=== PATIENT | female | born 1935 | race Caucasian/White ===

== ENCOUNTER 2019-01-24 14:38 | Inpatient (IN) ==
[2019-01-24] MEDS ORDERED: DUONEB (A & A) INH ONE (15:08)
[2019-01-24] MEDS ORDERED: VANCOMYCIN 1 GM/NS 1 GM/250 ML IVPB IV ONE (15:09)
[2019-01-24] MEDS ORDERED: SOLU-CORTEF IV ONE (15:09)
[2019-01-24] MEDS ORDERED: SOLU-MEDROL IV ONE (15:09)
[2019-01-24] MEDS ORDERED: ZOSYN 4.5 GM in NS 100 ML IV ONE (15:10)
--- NOTE | 2019-01-24 15:17 | Diag Imaging Result Doc PS360 ---
EXAM: CHEST-1 VIEW HISTORY: POSSIBLE SEPSIS TECHNIQUE: Chest single view COMPARISON: 01/08/2019 FINDINGS: The lungs are well expanded. The heart is not enlarged. The vessels are not distended. There are no infiltrates. There is scarring in the medial right base. No effusion identified. Long-standing right shoulder arthritis. IMPRESSION: No pneumonia. Electronically signed by Arvind Mcdaniels 01/24/2019 3:15 PM
[2019-01-24 15:59] LABS: ALLEN TEST YES; BE 1.2 mmoll (-3.0-3.0); BLOOD TYPE ARTERIAL; HCO3-(ACT) 25.8 mmoll (20.0-26.0); METHB 1.2 % (0.0-1.5); O2(CT) 17.4 mL/dL (15.0-23.0); O2HB 93.7 % (95.0-99.0); PCO2(98.6) 36 mmHg (35-45); PO2(98.6) 81 mmHg (60-100); SAMPLE BLOOD; SAO2 98.5 % (95.0-100.0); THB 13.2 g/dL (11.5-17.4); pH(98.6) 7.45 (7.35-7.45)
[2019-01-24 16:01] LABS: MODALITY CANNULA
[2019-01-24 16:17] LABS: BASO# 0.04 X1000 (0.0-0.2); BASO% 0.3 % (0.0-0.8); EOS# 0.02 X1000 (0.0-0.7); EOS% 0.1 % (0.0-10.0); HEMATOCRIT 39.3 % (37.0-47.0); HEMOGLOBIN 13.7 g/dL (12.0-16.0); IMM GRAN# 0.14 X1000 (0.0-0.04); LYMPH% 9.6 % (20.5-51.1); MCH 30.4 PG (27-31); MCHC 34.9 g/dL (33-37); MCV 87.1 FL (81-99); MONO% 8.8 % (1.7-9.3); NEUT# 10.86 X1000 (1.4-6.5); NEUT% 80.2 % (42.2-75.2); PLT 362 X1000 (130-400); RBC 4.51 XMIL (4.2-5.4); RDW 14.3 % (11.5-14.5); WBC 13.56 X1000 (4.8-10.8)
[2019-01-24 16:26] LABS: INR 0.87; PROTIME 12.6 Seconds (11.0-16.0)
--- NOTE | 2019-01-24 16:37 | PROVIDER DOCUMENTATION ---
This chart was entered by Taniya Meglar Scribe, acting as scribe for Yasir Reyes MD. HPI-Respiratory General - General Chief Complaint: SEPSIS ALERT - D Stated Complaint: SOB Time Seen by Provider: 01/24/19 14:56 Source: patient Allergies/Adverse Reactions: Patient Allergies Allergy/AdvReac Type Severity Reaction Status Date / Time hydrocodone bitartrate * AdvReac NAUSEA/VOMI Verified 07/07/16 07:28 [From Lortab] TING Home Medications: Home Medication List Medication Instructions Recorded Confirmed Last Taken Type Pravastatin Sodium 40 mg PO QHS 01/10/14 10/22/17 07/06/16 17:00 History Ramipril [Altace] 2.5 mg PO DAILY #0 01/19/14 10/22/17 07/06/16 08:00 Rx Meloxicam [Mobic] 15 mg PO DAILY PRN #0 03/29/14 10/22/17 07/06/16 08:00 Rx Guaifenesin E.r. [Mucinex] 600 mg PO BID 10/11/15 10/23/17 07/06/16 17:00 History Multivitamin with Minerals 1 each PO DAILY 07/05/16 10/23/17 07/06/16 08:00 History [Multiple Vitamin] Acetylcysteine 3 ml INH TID@0900,1500,2100 10/22/17 10/22/17 Unknown History Azelastine 137 Mcg Nasal [place] 2 spray JARED BID 10/22/17 10/22/17 Unknown History [Astelin Nasal [place]] Fluticasone/Salmet 250/50 INH 1 puff INH RTBID 10/22/17 10/22/17 Unknown History [Advair 250/50 Diskus] Umeclidinium [place] Inhaler 1 puff INH DAILY 10/22/17 10/22/17 Unknown History [Incruse Ellipta] Cefepime HCl/Dextrose, Iso-Osm 2 gm IV Q8H #42 [id number] 10/25/17 Unknown Rx [Cefepime 2 gm Injection] - History of Present Illness-Resp Nature of Presenting Problem: Patient is a 83 year old female who presents with shortness of breath, cough, and weakness. States history of COPD. Reports she wears 2.5 L of oxygen at night. Denies fever. States she takes 5 mg of Prednisone daily. Denies being on an antibiotic recently. Patient's O2 sat was 89% on room air. Quality of Pain: reports: tightness Severity in ED: reports: mild Onset/Duration: reports: gradual Timing: reports: still present, getting worse Cough Quality/Degree: reports: moderate, productive cough, sputum Episode Frequency: frequent episodes Current Respiratory Medication Therapy: Initiated see nurses note Associated Symptoms: reports: cough, shortness of breath, other (weakness) Similar Symptoms Previously?: Yes Recently seen or treated by another doctor?: Yes Review of Systems - Adult - REVIEW OF SYSTEMS - ADULT Constitutional: reports: no symptoms reported. denies: chills, fever, fatique Eyes: reports: no symptoms reported Ears, Nose, Mouth & Throat: reports: no symptoms reported. denies: ear pain, sinus problem, throat pain Cardiovascular: reports: no symptoms reported Respiratory: reports: see HPI, cough, shortness of breath. denies: wheezing Gastrointestinal: reports: no symptoms reported Genitourinary: reports: no symptoms reported Musculoskeletal: reports: no symptoms reported Integumentary: reports: no symptoms reported Neurological: reports: no symptoms reported Psychiatric: reports: no symptoms reported Endocrine: reports: no symptoms reported Hematologic/Lymphatic: reports: no symptoms reported Allergic/Immunologic: reports: no symptoms reported All Other Systems: Reviewed and Negative Past History - Adult - PAST MEDICAL HISTORY-ADULT Review of Records: reports: Old Records Reviewed, Nursing Assessment Review, Medications Reviewed, Social history reviewed & non-contributory. Major Childhood Illnesses: reports: denies history Cardiovascular: reports: aortic disease (AAA), HTN, hyperlipidemia Respiratory: reports: asthma, COPD, cancer (BELTRAN, s/p lobectomy), pneumonia (hx of recurrent) Gastrointestinal: reports: denies history Obstetrical/Gynecological: reports: denies history Genitourinary: reports: denies history Musculoskeletal: reports: denies history Neurological: reports: denies history Endocrine/Immune: reports: denies history Other Conditions: reports: other (AAA) - PRIOR SURGERIES/PROCEDURES Surgical/Procedure History: reports: appendectomy, cholecystectomy, joint replacement (hip replacement), other (Left upper lung lobectomy ) - IMMUNIZATION STATUS Childhood Immunizations: See Nurse Assessment Flu Vaccine: See Nurse Assessment - FAMILY HISTORY Family History: diabetes - SOCIAL HISTORY Smoking: cigarettes (former) Substance Use: denies Living Situation: alone Physical Exam-General - PHYSICAL EXAM-ADULT Initial Vital Signs Reviewed: Yes - CONSTITUTIONAL General Appearance: alert, no apparent distress, thin. negative: lethargic, slow to respond - RESPIRATORY Respiratory: chest non-tender, rhonchi (inspiratory and expiratory), increased rate, other (dyspnea). negative: accessory muscle use, wheezing - CARDIOVASCULAR Cardiovascular: normal peripheral pulses, regular rate, rhythm. negative: tachycardia, systolic murmur - GASTROINTESTINAL (ABDOMEN) Abdominal Exam: normal bowel sounds, non tender, soft. negative: guarding, rebound - MUSCULOSKELETAL Extremity: non-tender, normal inspection. negative: deformity, erythema - SKIN Integumentary: normal color, normal turgor, warm/dry. negative: cyanosis, ecchymosis, erythema, rash - NEUROLOGIC Neurologic: grossly normal. negative: aphasia, facial droop - PSYCHIATRIC Psych/Mental Status: normal mood/affect, oriented x 3. negative: anxious Progress - PLAN OF CARE/RESULTS Progress/Plan/Lab Results: Vital Signs - 8 hr 01/24/19 14:45 01/24/19 14:46 01/24/19 14:59 Temperature 96.5 F L Pulse Rate 98 H 83 Respiratory Rate 24 27 H Blood Pressure 156/137 156/137 145/75 O2 Sat by Pulse Oximetry 95 93 L 01/24/19 15:02 01/24/19 15:33 01/24/19 15:37 Temperature Pulse Rate 83 76 80 Respiratory Rate 19 20 32 H Blood Pressure 136/78 154/86 O2 Sat by Pulse Oximetry 94 L 98 99 01/24/19 16:03 Temperature Pulse Rate 89 Respiratory Rate 37 H Blood Pressure 144/100 O2 Sat by Pulse Oximetry 89 L Laboratory Results - last 24 hr 01/24/19 01/24/19 01/24/19 15:08 15:33 15:33 WBC 13.56 H RBC 4.51 Hgb 13.7 Hct 39.3 MCV 87.1 MCH 30.4 MCHC 34.9 RDW Std Deviation 14.3 Plt Count 362 MPV 9.0 Immature Gran % (Auto) 1.0 H Neut % (Auto) 80.2 H Lymph % (Auto) 9.6 L Coleman % (Auto) 8.8 Eos % (Auto) 0.1 Baso % (Auto) 0.3 Immature Gran # (Auto) 0.14 H Neut # (Auto) 10.86 H Lymph # (Auto) 1.30 Coleman # (Auto) 1.20 H Eos # (Auto) 0.02 Baso # (Auto) 0.04 PT 12.6 INR 0.87 PTT (Actin FS) 26.0 Specimen Type ARTERIAL Sample Site R RADIAL pH 7.45 pCO2 36 pO2 81 HCO3 25.8 Base Excess 1.2 Oxyhemoglobin 93.7 L ABG O2 Sat (Calculated) 17.4 ABG O2 Saturation 98.5 ABG Carboxyhemoglobin 3.80 H ABG Methemoglobin 1.2 Feng Test YES A-a O2 Difference 74.0 Total Hemoglobin 13.2 Lactate 0.80 Blood Gas Modality CANNULA FiO2 % 28.0 Plasma Lactate 01/24/19 15:33 WBC RBC Hgb Hct MCV MCH MCHC RDW Std Deviation Plt Count MPV Immature Gran % (Auto) Neut % (Auto) Lymph % (Auto) Coleman % (Auto) Eos % (Auto) Baso % (Auto) Immature Gran # (Auto) Neut # (Auto) Lymph # (Auto) Coleman # (Auto) Eos # (Auto) Baso # (Auto) PT INR PTT (Actin FS) Specimen Type Sample Site pH pCO2 pO2 HCO3 Base Excess Oxyhemoglobin ABG O2 Sat (Calculated) ABG O2 Saturation ABG Carboxyhemoglobin ABG Methemoglobin Feng Test A-a O2 Difference Total Hemoglobin Lactate Blood Gas Modality FiO2 % Plasma Lactate 1.1 Orders Category Date Time Status Cardiac Monitoring DIRECTED Care 01/24/19 14:54 Active IV Insertion ORDERED Care 01/24/19 14:54 Completed Notify MD of + Sepsis Screen NOW Care 01/24/19 14:54 Active Notify Physician As Ordered Care 01/24/19 14:54 Active CHEST-1 VIEW [RAD] Stat Exams 01/24/19 14:54 Completed ABG [RESP] Routine Lab 01/24/19 15:08 Completed BLOOD CULTURE [BLDCUL] Stat Lab 01/24/19 15:33 Results CBC WITH DIFF [HEME] Stat Lab 01/24/19 15:33 Completed CK PROFILE [SP CHEM] Stat Lab 01/24/19 15:33 Received COMPREHENSIVE METABOLIC PANEL [CHEM] Stat Lab 01/24/19 15:33 Received LACTATE, PLASMA [CHEM] Lab 01/24/19 15:33 Completed LACTATE, PLASMA [CHEM] Lab 01/24/19 18:00 Uncollected LACTATE, PLASMA [CHEM] Lab 01/24/19 21:00 Uncollected PRO B-NATRIURETIC PEPTIDE Stat Lab 01/24/19 15:33 Received PROTIME WITH INR [COAG] Stat Lab 01/24/19 15:33 Completed PTT [COAG] Stat Lab 01/24/19 15:33 Completed TROPONIN T Stat Lab 01/24/19 16:07 Received URINALYSIS W/POSS RFLX CULT [URINALYSIS] Stat Lab 01/24/19 14:54 Uncollected Albuterol 2.5MG/Ipratrop 0.5MG [Duoneb (A & A)] Med 01/24/19 15:08 Discontinued 3 ml INH NOW ONE Hydrocortisone Sod Succinate [Solu-Cortef] Med 01/24/19 15:09 Discontinued 100 mg IV NOW ONE Methylprednisolone Sod Succ [Solu-Medrol] Med 01/24/19 15:09 Discontinued 125 mg IV NOW ONE Piperacillin/Tazobactam [Zosyn] 4.5 gm Med 01/24/19 15:10 Discontinued 0.9% Sodium Chloride Inj [Ns] 100 ml IV NOW Vancomycin 1 gm/Ns Med 01/24/19 15:09 Discontinued 1 gm in 250 ml IV NOW Aerosol Treatments Routine Oth 01/24/19 15:09 Completed Aerosol Treatments Stat Oth 01/24/19 15:09 Completed Oxygen Device Stat Oth 01/24/19 14:54 Completed Result Diagrams: 01/24/19 15:33 - EKG 1 Time of EKG reading by physician:: 14:47 EKG Read and Signed by:: Yasir Reyes EKG Interpretation (*Must complete 3 of following elements*): Abnormal Rate: 98 Rhythm: normal sinus rhythm [place]: left VA Interval: normal Comments: septal infarct, age undetermined - XRAY 1 XRAY Study: Chest Impression: See EMR Report ( EXAM: CHEST-1 VIEW HISTORY: POSSIBLE SEPSIS TECHNIQUE: Chest single view COMPARISON: 01/08/2019 FINDINGS: The lungs are well expanded. The heart is not enlarged. The vessels are not distended. There a re no infiltrates. There is scarring in the medial right base. No effusion identified. Long-standing right shoulder arthritis. IMPRESSION: No pneumonia. Electronically signed by Arvind Mcdaniels 01/24/2019 3:15 PM 01/24/19 1515 Interpreting Physician: Arvind Mcdaniels MD Dictated Date/Time: 01/24/19 1514 cc: Yasir Reyes MD; Shantel Joseph MD) - CONSULTS/PCP/HOSPITALIST Notification #1 *Consult/PCP/Hospitalist*: Dr. Mack Time Discussed: 15:16 Reason/Comments: Dr. Reyes consulted with Dr. Mack about patient. Consult Disposition: other (Dr. Mack states he will consult if he is needed.) #2 Consult: Shani Time Discussed: 16:35 (Admit to [facility]) Consult Disposition: Will see in ED Departure - Departure Date of Disposition Decision: 01/24/19 Time of Disposition Decision: 16:36 DIAGNOSIS: Sepsis without acute organ dysfunction, Pneumonia due to Pseudomonas aeruginosa, COPD with exacerbation Disposition: ADMITTED INPATIENT 09 Certified Medical Emergency: Emergent Condition: Fair Referrals and Follow-Ups: Shantel Joseph MD [Primary Care Provider] - - Critical Care Note This patient required my direct & personal management of CC.: Yes Total Time (mins): 40 (sarah ALONZO consults, tx for sepsis/COPD exacerbation/steroid dependence) Critical Care Statement: This patient required my direct personal management to treat or rule out processes, the absence of which, could potentiallly result in sudden, clinically significant life or limb threatening deterioration. Attestation - Physician/ JOCELYN Attestation Patient care was provided by Advanced Practice Provider:: No The physician spent face to face time with patient:: Yes Advanced Practice Provider documentation review:: Supervising physician onsite and consulted in the evaluation and care of this patient. The physician did have a face to face encounter with the patient. This chart was documented by the indicated scribe, (Taniya Melgar Scribe) and accurately reflects the services I performed and decisions made by me, Yasir Reyes MD, as attested by the provider's signature.
[2019-01-24 16:38] LABS: AGAP 12; ALB/GLOB RATIO 1.6; ALKALINE PHOSPHATASE 89 U/L (32-104); BUN 19 mg/dL (8-22); CALCIUM 8.8 mg/dL (8.8-10.2); CHLORIDE 95 mmol/L (98-107); CK PROFILE 135 U/L (24-173); COSMO 266; CREATININE 0.7 mg/dL (0.5-0.9); ESTIMATED GFR > 60; GLUCOSE 117 mg/dL (70-104); GOT 21 U/L (10-30); GPT 18 U/L (10-36); SODIUM 131 mmol/L (136-145); TCO2 24 mmol/L (25-35); TOTAL BILIRUBIN 0.39 mg/dL (0.20-1.00); TOTAL PROTEIN 6.5 g/dL (6.3-8.3)
[2019-01-24 16:45] LABS: URINE SOURCE CATH
[2019-01-24 16:49] LABS: BILIRUBIN URINE NEGATIVE (NEGATIVE); BLOOD URINE SMALL (NEGATIVE); COLOR YELLOW; GLUCOSE URINE NEGATIVE (NEGATIVE); KETONE URINE NEGATIVE (NEGATIVE); LEUKOCYTES URINE NEGATIVE (NEGATIVE); NITRITE URINE NEGATIVE (NEGATIVE); PH URINE 5.5; PROTEIN URINE NEGATIVE (NEGATIVE); SP GRAVITY URINE 1.011; TURBIDITY URINE CLEAR (CLEAR); UROBILINOGEN URINE NORMAL (NORMAL)
[2019-01-24 16:51] LABS: UR EPITHELIAL CELLS <10 /HPF (<10); URINE BACTERIA NEGATIVE /HPF; URINE RBC <10 /HPF (<10); URINE WBC <10 /HPF (<10)
[2019-01-24] MEDS ORDERED: NS 1,000 ML IV SCH (18:39)
[2019-01-24] MEDS ORDERED: ZOFRAN IV PRN (18:39)
[2019-01-24] MEDS ORDERED: TYLENOL PO PRN (18:39)
[2019-01-24] MEDS ORDERED: VANCOMYCIN IV PER PHARMACY MISC SCH (18:39)
[2019-01-24] MEDS: DUONEB (A & A) INH SCH ×2 (20:02→23:21)
--- NOTE | 2019-01-24 21:37 | HISTORY AND PHYSICAL ---
PRIMARY CARE PHYSICIAN: Dr. Joseph. DOUBLE END TENONER SETTER: Dr. Mack. CHIEF COMPLAINT: Worsening shortness of breath, cough, and weakness. States she wears 2-1/2 L of oxygen at night and O2 saturation was 89% on room air on arrival. HISTORY OF PRESENTING ILLNESS: This is an 83-year-old female who presents to [facility] with complaints of worsening shortness of breath, cough, and weakness. O2 saturation on room air when she arrived was 89%. States she normally wears 2- 1/2 L of O2 at bedtime but has been having to wear it during the daytime. Recently saw her primary care physician on 01/21/2019 where she obtained a sputum culture that has grown out a Pseudomonas aeruginosa. Chest x-ray showed no pneumonia. White count was mildly elevated at 13.56 so she is being admitted for further evaluation and treatment. PAST MEDICAL HISTORY: COPD, AAA, hypertension, hyperlipidemia, asthma, and left upper lobe lung cancer in 2011. PAST SURGICAL HISTORY: Appendectomy, cholecystectomy, left upper lobe lobectomy and a hip replacement. FAMILY HISTORY: Diabetes. SOCIAL HISTORY: She currently lives alone. Denies any current tobacco use but is a former smoker and denies any alcohol or illicit drug use. ALLERGIES: Hydrocodone. HOME MEDICATIONS: A current list needs to be obtained, reconciled, reviewed and restarted as appropriate, and we placed an order for nursing to update and confirm home medications. LABORATORY DATA: Showed a white blood cell count of 13.56, hemoglobin 13.7, hematocrit 39.3 with platelets of 362,000. PT and INR of 12.6 and 0.87. ABG showed a pH of 7.45, pCO2 of 36, pO2 81, bicarbonate 25.8 on 28% FiO2 via nasal cannula. Sodium of 131, potassium of 5, chloride 95, CO2 24, BUN of 19, creatinine 0.7, glucose 117. Cardiac enzyme was negative, plasma lactate of 1.1. Chest x-ray showed no pneumonia. Again, she had a sputum culture on 01/21/2019 that has resulted today with Pseudomonas aeruginosa. Blood cultures x2 are pending. REVIEW OF SYSTEMS: She denied any fever, chills, blurred vision, dizziness, chest pain. She has had a productive cough, shortness of breath, generalized weakness. Denied any abdominal pain, constipation, diarrhea, burning or hurting with urination. PHYSICAL EXAMINATION: VITAL SIGNS: On arrival, she had a temperature of 96.5 degrees, pulse 98, respirations 24, blood pressure was 156/137, saturating 95% on room air. She did drop to 89% on room air, placed on O2, saturating 98%. Blood pressure is down to 144/100. GENERAL: This is an 83-year-old female who is sitting up in the bed. Answers questions appropriately. HEENT: Normocephalic, atraumatic. Normal ENT inspection. Oropharynx and nares are clear. Eyes: Pupils are equal, round and reactive to light and accommodation. NECK: Normal inspection, normal range of motion. LUNGS: Left upper lobe of course is decreased. She is noted to have some rhonchi inspiratory and expiratory throughout her other lung muir bilaterally with some dyspnea prior to her O2 use but currently denies any shortness of breath. Equal lung expansion. Chest wall movement noted. HEART: Regular rate and rhythm. No murmurs, rubs, or gallops. ABDOMEN: Soft, nontender, nondistended. Bowel sounds are present x4 quadrants. MUSCULOSKELETAL: 5/5 strength x4 extremities. NEUROLOGICAL: The cranial nerves 2 through 12 appear grossly intact. ASSESSMENT: 1. Pseudomonas aeruginosa sputum culture. 2. Leukocytosis. 3. Some hyponatremia. 4. Hypoxia. PLAN: She will be admitted to the medical unit, placed on telemetry, O2 per protocol, healthy heart diet. We will consult Pulmonology. We need to update and confirm home medications. Place on DuoNeb q.4 hours, Zosyn 3.375 g IV q.6, vancomycin per pharmacy protocol, Zofran 4 mg IV q.4 hours p.r.n., Tylenol 650 mg p.o. q.6 hours p.r.n., apply SCDs for DVT prophylaxis. Recheck a CBC, BMP in the a.m., and we will put her on some mild hydration at normal saline at 50 mL an hour, and further orders after seen by attending and by professional benefits sales consultant. Dictated by PAYAL Pulliam for Alfredo Reyes MD cc: PAYAL Pulliam MD Emily M. McClure, MD I have seen and examined Ms Alford who present with recurrent pseudomona pneumonia sputum culture positive since january [id number] will cover her with zosyn. Will consult pulmonary medicine and infectious disease. I agree with the above HPI. LEANNED
[2019-01-24] MEDS: ZOSYN 3.375 GM in NS 50 ML IV SCH (21:42)
[2019-01-25] MEDS: DUONEB (A & A) INH SCH ×6 (03:10→23:18)
[2019-01-25] MEDS: ZOSYN 3.375 GM in NS 50 ML IV SCH ×2 (03:23→08:34)
--- NOTE | 2019-01-25 06:23 | PULMONOLOGY CONSULTATION ---
DATE: 01/24/2019 REQUESTING PHYSICIAN: Dr. Reyes. REASON FOR CONSULTATION: Evaluation and treatment. HISTORY OF PRESENT ILLNESS: Ms Alford is an 83-year-old white female who has been followed in my clinic for several years. The patient has severe chronic obstructive pulmonary disease and underwent a left upper lobectomy for lung cancer in September 2011. She has had subsequent cavitary pneumonia in the remaining apical portion of the left upper lobe, which has grown Stenotrophomonas maltophilia and Aspergillus fumigatus in the past. The cavitary lesion did improve/resolve with a long course of antibiotics, including Vfend. Her most recent history is notable for recurrent exacerbations of bronchiectasis due to a quinolone resistant Pseudomonas. This organism has also been resistant to ceftazidime and cefepime. She frequently requires a PICC line placement and prolonged course of antibiotics. The patient was recently evaluated in my office and I attempted to transition her off inhaled corticosteroids and put her on a long-acting beta agonist/long-acting muscarinic antagonist. She reports shortly after that visit, she started to feel poorly with severe fatigue, increased dyspnea, with increased cough and sputum. The patient was evaluated by Dr. Joseph, as my office was closed on vacation. She underwent a sputum culture 01/21/2019, which revealed Pseudomonas, which is sensitive to aminoglycosides and Zosyn. It is resistant to cefepime, ceftazidime, with intermediate response to Levaquin. The patient reports her shortness of breath came became more severe with a drop in her oxygen saturation, and she presented to the emergency room for evaluation. Chest x-ray reveals chronic changes at the right base. White blood count is elevated at 13.6 with a left shift. PAST MEDICAL HISTORY: 1. Left upper lobectomy, as per above. 2. Bronchiectasis with recurrent gram-negative infection. 3. Chronic obstructive pulmonary disease. 4. Status post hip replacements. 5. Status post cholecystectomy. SOCIAL HISTORY: Prior tobacco use (although the carboxyhemoglobin level is slightly elevated at 3.80). She is a . She is retired. FAMILY HISTORY: Positive for pancreatic cancer and coronary artery disease. REVIEW OF SYSTEMS: As outlined in the HPI, but is otherwise negative. PHYSICAL EXAMINATION: General: Reveals a thin, chronically ill-appearing white female, in no acute distress. Vital signs: BP 151/52, heart rate 79, respiratory rate 16, oxygen saturation 97% on 2 L per nasal cannula. HEENT: Pupils are equal and reactive. Oropharynx is clear. Neck: Supple. Chest: Reveals scattered rhonchi bilaterally. Cardiac Exam: S1, S2. Abdomen: Soft and without hepatosplenomegaly. Extremities: Without edema. LABORATORIES: Chest x-ray reveals no acute change. White blood count 13.56, hemoglobin 13.7, platelet count 362,000. IMPRESSION: An 83-year-old with chronic obstructive pulmonary disease who presents with 1. Exacerbation of bronchiectasis 2. Chronic obstructive pulmonary disease exacerbation. 3. Leukocytosis. 4. Dyspnea on exertion over her baseline. 5. Acute on chronic hypoxemic respiratory failure. RECOMMENDATIONS: 1. Continue Zosyn for Pseudomonas aeruginosa exacerbation of bronchiectasis. 2. Recommend discontinuing vancomycin. The patient has had a recent sputum culture and no gram- positive organisms were identified. There may be an increase renal injury associated with the use of Zosyn and vancomycin together. 3. Routine bronchodilators. 4. Anticipate the need for a 2-week course of antibiotics. The patient would like to consider a port placement due to her chronic antibiotic requirements. Dr. Doug Peters has performed several surgeries on her in the past and I will contact him to of consider port placement early next week. cc: Germán Mack MD [facility]
[2019-01-25 06:59] LABS: BASO# 0.02 X1000 (0.0-0.2); BASO% 0.2 % (0.0-0.8); EOS# 0.01 X1000 (0.0-0.7); EOS% 0.1 % (0.0-10.0); HEMATOCRIT 35.8 % (37.0-47.0); HEMOGLOBIN 12.2 g/dL (12.0-16.0); IMM GRAN# 0.09 X1000 (0.0-0.04); IMM GRAN% 0.9 % (0.0-0.5); LYMPH# 0.87 X1000 (1.2-3.4); LYMPH% 8.4 % (20.5-51.1); MCHC 34.1 g/dL (33-37); MCV 88.2 FL (81-99); MONO# 0.98 X1000 (0.11-0.59); MONO% 9.5 % (1.7-9.3); MPV 8.9 FL (7.4-10.4); NEUT# 8.34 X1000 (1.4-6.5); NEUT% 80.9 % (42.2-75.2); PLT 331 X1000 (130-400); RBC 4.06 XMIL (4.2-5.4); RDW 14.1 % (11.5-14.5); WBC 10.31 X1000 (4.8-10.8)
[2019-01-25 07:47] LABS: AGAP 11; BUN 17 mg/dL (8-22); CALCIUM 8.5 mg/dL (8.8-10.2); CHLORIDE 103 mmol/L (98-107); COSMO 276; CREATININE 0.6 mg/dL (0.5-0.9); ESTIMATED GFR > 60; GLUCOSE 142 mg/dL (70-104); POTASSIUM 4.4 mmol/L (3.5-5.1); SODIUM 136 mmol/L (136-145); TCO2 22 mmol/L (25-35)
[2019-01-25] MEDS ORDERED: MERREM 1 GM in NS 50 ML IV SCH (08:45)
[2019-01-25] MEDS ORDERED: TOBRAMYCIN IV PER PHARMACY MISC SCH ×2 (08:45)
[2019-01-25] MEDS ORDERED: ASTELIN NASAL SPRAY NAS PRN (09:56)
[2019-01-25] MEDS ORDERED: VANCOMYCIN 1.4 GM in NS 250 ML IV SCH (11:00)
[2019-01-25] MEDS: TOBRAMYCIN INH SCH ×2 (11:14→19:30)
[2019-01-25] MEDS: ZOSYN 4.5 GM in NS 100 ML IV SCH ×3 (11:19→22:08)
--- NOTE | 2019-01-25 13:26 | PROGRESS NOTE ---
DATE: 01/25/2019 SUBJECTIVE: This morning, Ms. Alford refers to be feeling a little better. She was putting on her facial. OBJECTIVE: Vital signs: Blood pressure 96/60 with a MAP of 70, pulse of 68, respirations of 16, temperature is 97.5 degrees. Patient is saturating 93%. General: Ms. Alford is a 83-year-old, elderly, female. She is in bed. She did not seem to be in any distress. HEENT: Mucosa is pink and moist. Anicteric. Acyanotic. Neck: Supple. Respiratory: Air entry is bilaterally reduced. There is diffuse end-inspiratory crackles in both lung muir. I did not hear much wheezing. Cardiovascular: Regular rate and rhythm. Abdomen: Soft, nontender. Bowel sounds present. Extremities: No pedal edema. Central nervous system: Patient is awake, alert, and oriented. There is no focal neurological deficit. LABORATORY DATA AND DIAGNOSTICS: WBC is down to 10.31, hemoglobin is 12.2, platelet count of 331,000. Chemistry is also reviewed, is completely normal. A chest x-ray yesterday showed scarring in the medial right base. No new infiltrates. So far, blood cultures have not shown anything. The sputum culture on the did show Pseudomonas aeruginosa that has been growing almost with every culture that we have. Current laboratory data has also been reviewed. ASSESSMENT: 1. Recurrent Pseudomonas aeruginosa pneumonia. Patient has been started on Zosyn. It looks like she has been on that for some time so I have changed it to meropenem and we will add tobramycin inhalation. We have also consulted Infectious Disease as well as Pulmonary Medicine. 2. History of chronic obstructive pulmonary disease, in mild exacerbation. 3. Acute on chronic hypoxemic respiratory failure. Patient is on oxygen therapy. Seems to be saturating well. 4. Clinical volume depletion, improved. We will discontinue the IV fluids. cc: Alfredo Reyes MD Addendum: I called Microbiology and the patient Pseudoma is resident to the carbapenems so I have discontinued Meropenem. Will re-start Zosyn at 4.5gm q 6hrs. MTDD
--- NOTE | 2019-01-25 18:46 | PULMONOLOGY PROGRESS NOTE ---
DATE: 01/25/2019 SUBJECTIVE: The patient is awake, alert, and conversant. She feels slightly better. OBJECTIVE: The patient has been afebrile for the last 24 hours. Blood pressure 96/60, heart rate 68, respiratory rate 16, oxygen saturation 93% on 2 L per nasal cannula. HEENT: Pupils are equal and reactive. Oropharynx appears clear. Neck is supple. Chest reveals scattered rhonchi bilaterally. Cardiac exam: S1, S2. Abdomen is soft. Extremities without edema. LABORATORY DATA: White blood count has decreased to 10.31, hemoglobin 12.2, platelet count 331,000. Sodium 136, potassium 4.4, chloride 103, bicarbonate 22, BUN 17, creatinine 0.6. IMPRESSION: An 83-year-old with: 1. Chronic obstructive pulmonary disease. 2. Exacerbation of bronchiectasis. 3. Leukocytosis. 4. Dyspnea. 5. [id number] hypoxemic respiratory failure. RECOMMENDATIONS: 1. Continue antibiotics for Pseudomonas aeruginosa exacerbation of bronchiectasis. I have no reservations about using a carbapenem, but would recommend the laboratory drop a disk to see if current specimen is sensitive to carbapenem. 2. Agree with trial of inhaled aminoglycosides. 3. Continue Mucomyst. 4. Anticipate the need for access placement at the time of discharge. We will ask Dr. Peters to consider a Port-A-Cath placement. cc: Germán Mack MD
[2019-01-25] MEDS: PRAVACHOL PO SCH (21:24)
[2019-01-26] MEDS: DUONEB (A & A) INH SCH ×6 (02:59→23:31)
[2019-01-26] MEDS: ZOSYN 4.5 GM in NS 100 ML IV SCH ×4 (04:01→22:13)
[2019-01-26] MEDS: TOBRAMYCIN INH SCH ×2 (07:33→19:43)
[2019-01-26] MEDS: INCRUSE ELLIPTA INH SCH (08:16)
[2019-01-26] MEDS: MUCOMYST 20% INH SCH (08:16)
[2019-01-26] MEDS: ALTACE PO SCH (08:47)
[2019-01-26] MEDS: THERA M PLUS PO SCH (08:47)
--- NOTE | 2019-01-26 10:09 | PROGRESS NOTE ---
DATE: 01/26/2019 SUBJECTIVE: This morning, Ms. Alford was sitting up in a chair. She says she was feeling a little better. She says she did cough a whole lot yesterday after she got the tobramycin inhaled antimicrobial therapy. OBJECTIVE: Vital Signs: Blood pressure is currently 129/66, pulse of 78, respirations are 16, temperature is 97.9 degrees, the patient is saturating 99%. General Examination: Ms. Alford is an 83-year-old, female. She was sitting up in a chair. No distress. HEENT: Mucosa is pink and moist. Anicteric. Acyanotic. Neck: Supple. Chest: Air entry is bilaterally reduced. There is still some diffuse end-inspiratory crackles in both lungs, more so on the left than the right. There is also end-expiratory rhonchi. There is an old scar on the left posterior chest wall. Cardiovascular: Regular rate and rhythm. No murmurs, no rubs, no gallops. GI: Abdomen is soft, nontender. Extremities: No pedal edema. 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 There is no focal neurological deficit. Laboratory Data: None for today and no new imaging studies. MEDICATIONS: Current medications include: 1. Zosyn 4.5 g q.6 hour. 2. Pravachol 40 mg p.o. at bedtime. 3. Ramipril 2.5 p.o. daily. 4. Tobramycin 300 mg inhaling q.12 hourly. 5. Incruse Ellipta 1 puff daily. ASSESSMENT: 1. Recurrent Pseudomonas aeruginosa pneumonia. Patient is currently on Zosyn and inhaled tobramycin. Patient is being followed up by pulmonary medicine. Infectious disease has also been consulted. 2. History of chronic obstructive pulmonary disease, in mild exacerbation. 3. Acute on chronic hypoxemic respiratory failure. Patient continues to be on oxygen therapy. 4. Clinical volume depletion, improved. 5. Hypertension, controlled on medications. 6. Dyslipidemia, stable. PLAN: In general, Ms. Alford continues to be fairly stable. She is going to most likely need prolonged antimicrobial therapy. We are going to be waiting on ID recommendations and then go from there. The patient is being currently seen by pulmonary medicine. I do appreciate the recommendations. cc: Alfredo Reyes MD
--- NOTE | 2019-01-26 14:57 | INFECTIOUS DISEASE CONSULT REP ---
DATE: 01/26/2019 CONCLUSION: 1. The patient is admitted into the hospital with Pseudomonas purulent bronchitis. 2. She also has bronchiectasis. 3. She may have a pneumonia also that does not show on chest x-ray. To the best my knowledge, we have tested the patient in the past for immunoglobulin deficiency, and I think she does not have it, but I am going to go ahead and repeat the immunoglobulin levels again. RECOMMENDATION: The patient had a sputum culture done on January 21. The Pseudomonas is susceptible to tobramycin and Zosyn. I agree with treating the patient with IV Zosyn and tobramycin by inhalation. I have also ordered a noncontrasted CT scan of the chest, and I have also ordered immunoglobulin levels. PRESENT ILLNESS: The patient was admitted to the hospital. She said that in the past 5 to 7 days she had become increasingly dyspneic and weak. She got to the point where she could barely talk. She is coughing and has produced a green sputum. A sputum culture was obtained on January 21 of this year as mentioned above. DIAGNOSTIC STUDIES: The patient's laboratory studies thus far [place] a [place] [address], hemoglobin 12.2, and the platelet count is 331,000. Gases show a pH of 7.45, a PO2 of 81, a pCO2 of 36. Creatinine is 0.6, GFR is greater than 60. Urinalysis shows no white cells or bacteria. Chest x-ray shows scarring in the lungs and no infiltrate or effusion. PAST MEDICAL HISTORY/REVIEW OF SYSTEMS: Eyes and Ears: She denies any trouble hearing or seeing. Neck: She does have pain in her neck, especially when she moves her neck. Bones, Joints, Muscles: She has right shoulder pain and left knee pain. The left knee occasionally swells. Respiratory: See Present Illness. Cardiac: No chest pain or palpitations. Gastrointestinal: No nausea, vomiting, or diarrhea. Genitourinary: No dysuria or flank pain. Neurologic: No seizures. No recent loss of motor or sensory function. Integument: No rash. OBSTETRICAL/GYNECOLOGICAL HISTORY: She is a 3, para 3, AB 0. PREVIOUS HOSPITALIZATIONS AND OPERATIONS: She has had labor and deliveries, a right total hip arthroplasty, an aortic aneurysm repair, and a lung biopsy. She has had removal of the left upper lobe surgically. She has had a cholecystectomy also. MEDICAL DISEASES: Positive for lung cancer, hyperlipidemia, COPD, and bronchiectasis. INFECTIOUS DISEASE HISTORY: Positive for pneumonia and bronchitis and urinary tract infection. FAMILY HISTORY: Positive for diabetes mellitus, hypertension, myocardial infarction, stroke, and cancer. SOCIAL HISTORY: [place] She stopped smoking cigarettes about 10 years ago. She does not drink alcoholic beverages or abuse drugs. She is a . She lives alone. She does not have any pets at home. ALLERGIES: The patient has a drug allergy to hydrocodone. MEDICATIONS: Taken at home include Azelastine, fluticasone, Mucinex, Mobic, multivitamins, pravastatin, ramipril, and an ]inhaler. PHYSICAL EXAMINATION: Vital Signs: Temperature is 97.8 degrees, pulse 73, respirations 16, blood pressure 122/88. Weight: The patient weighs 126 pounds. General: This is a chronically ill- appearing elderly female. She is in no acute distress. Head, Eyes, Ears, Nose, and Throat: She can hear my spoken words and see near objects. She does not have any white patches on her tongue. Neck: No meningismus. Lungs: I did not hear any rales or rhonchi. There were somewhat diminished breath sounds. Thorax: Patient has an increased AP diameter of the chest. Cardiovascular: Heart rate is irregular. Abdomen: Soft and nontender. Legs: No edema or erythema. Neurologic: The patient is alert. She can move her extremities. There is no tremor. Her sensation is intact to touch. Her memory as regarding her medical history is slightly diminished. Thank you for the consult. cc: MD ELI Spear
--- NOTE | 2019-01-26 14:58 | PULMONOLOGY PROGRESS NOTE ---
DATE: 01/26/2019 SUBJECTIVE: The patient reports she is producing some sputum. She has some coarseness to her voice. She did not sleep well last night. OBJECTIVE: Vital Signs: The patient has been afebrile for the last 24 hours. Blood pressure 122/88, heart rate 73, respiratory rate 16, oxygen saturation 99% HEENT: Pupils are equal and reactive. Oropharynx appears clear. Neck: Supple. Chest: Reveals scattered rhonchi bilaterally. Cardiac: S1, S2. Abdomen: Soft without hepatosplenomegaly. Extremities: Without edema. LABORATORIES: No new CBC today. No new chemistries today. IMPRESSIONS: This is an 83-year-old with: 1. Chronic obstructive pulmonary disease. 2. Exacerbation of bronchiectasis with recurrent pseudomonal infection. 3. Dyspnea on exertion. 4. Acute on chronic hypoxemic respiratory failure. 5. Remote history of lung cancer. PLAN: 1. Continue current antibiotic regimen. The patient antibiotics will be reviewed by Infectious Disease. 2. Continue bronchodilators. 3. We will consult Dr. Peters to consider Port-A-Cath placement. cc: Germán Mack MD
--- NOTE | 2019-01-26 18:45 | Diag Imaging Result Doc PS360 ---
EXAM: CT THORAX W/O CONTRAST - 01/26/2019 HISTORY: pneumonia TECHNIQUE: CT thorax without contrast. No contrast administered per request of the referring provider. COMPARISON: 12/19/2016 FINDINGS: There are COPD/emphysematous changes. There is apparent scarring at the left upper lobe at the location of the cavitary lesion which was seen on the prior exam. There is partial atelectasis of the right lower lobe. Underlying infiltrate the right lower lobe is not excluded. There is pleural thickening at the posterior right base. There is pleural thickening or small pleural effusion at the posterior left base. There are low-density lesions noted in the spleen which are generally similar to prior. There are cystic lesions noted in the spleen similar to prior. IMPRESSION: COPD/emphysematous changes. Apparent scarring at left upper lobe at the location of the cavitary lesion which was seen on the prior exam. Partial atelectasis of right lower lobe. Underlying infiltrate in the right lower lobe is not excluded. Pleural thickening at posterior right base. Small amount infiltrate or atelectasis at posterior left base. Mild pleural thickening versus small pleural effusion at posterior left base. This exam was performed using automated exposure control, adjustment of mA or kV according to patient size, and/or use of iterative reconstruction technique. Electronically signed by Cecilio Staples 01/26/2019 6:42 PM
[2019-01-26] MEDS: PRAVACHOL PO SCH (20:12)
[2019-01-27] MEDS: DUONEB (A & A) INH SCH ×5 (04:28→20:20)
[2019-01-27] MEDS: ZOSYN 4.5 GM in NS 100 ML IV SCH ×3 (05:22→16:31)
[2019-01-27 07:04] LABS: BASO# 0.07 X1000 (0.0-0.2); BASO% 0.9 % (0.0-0.8); EOS# 0.16 X1000 (0.0-0.7); HEMATOCRIT 38.9 % (37.0-47.0); IMM GRAN% 1.2 % (0.0-0.5); LYMPH# 1.05 X1000 (1.2-3.4); LYMPH% 12.9 % (20.5-51.1); MCH 30.5 PG (27-31); MCHC 33.4 g/dL (33-37); MCV 91.3 FL (81-99); MONO# 1.07 X1000 (0.11-0.59); MONO% 13.2 % (1.7-9.3); NEUT# 5.66 X1000 (1.4-6.5); NEUT% 69.8 % (42.2-75.2); PLT 324 X1000 (130-400); RBC 4.26 XMIL (4.2-5.4); RDW 14.9 % (11.5-14.5); WBC 8.11 X1000 (4.8-10.8)
--- NOTE | 2019-01-27 07:32 | Diag Imaging Result Doc PS360 ---
EXAM: CHEST-PORTABLE INDICATION: dyspnea TECHNIQUE: One view COMPARISON: 01/24/2019 FINDINGS: There are stable COPD changes. There is stable fibrotic change at the right lung base. No new consolidation is identified. Cardiac silhouette is stable. IMPRESSION: Stable chest. Electronically signed by Rafael Perez 01/27/2019 7:29 AM
[2019-01-27 07:42] LABS: AGAP 15; BUN 14 mg/dL (8-22); CALCIUM 8.8 mg/dL (8.8-10.2); CHLORIDE 100 mmol/L (98-107); COSMO 272; CREATININE 0.8 mg/dL (0.5-0.9); ESTIMATED GFR > 60; GLUCOSE 91 mg/dL (70-104); PHOSPHORUS 3.7 mg/dL (2.7-4.5); SODIUM 136 mmol/L (136-145); TCO2 21 mmol/L (25-35)
--- NOTE | 2019-01-27 07:45 | EKG Report ---
Test Performed on : 01/24/2019 2:47:04 PM Test Reason : ED. NO EKG ORDER FOR MUSE Blood Pressure : / mmHG Vent. Rate : 098 BPM Atrial Rate : 098 BPM P-R Int : 174 ms QRS Dur : 104 ms QT Int : 344 ms P-R-T Axes : 070 -57 063 degrees QTc Int : 439 ms Normal sinus rhythm. Left axis deviation Septal infarct (cited on or before 28-SEP-2011) Abnormal ECG When compared with ECG of 06-MAY-2016 14:12, premature atrial complexes. are no longer present QRS axis shifted left Unconfirmed Result
--- NOTE | 2019-01-27 08:04 | INFECTIOUS DISEASE PROGRESS NO ---
DATE: 01/27/2019 PRESENT ILLNESS: The patient has a Pseudomonas purulent bronchitis, and as seen on CT scan, she may have bilateral infiltrates due to Pseudomonas pneumonia. In addition, the patient has a left upper lobe cavitary lesion, which apparently she has had for quite a while, and it has not changed in size. MEDICATIONS: The patient is receiving a combination of IV Zosyn and tobramycin by inhalation. PHYSICAL EXAMINATION: Vital Signs: Temperature is 97.5 degrees, pulse 68, respirations 18, blood pressure 119/67. General: This is a chronically ill-appearing, elderly female. She seems less dyspneic than when I first saw her. HEENT: She can hear my spoken words and see near objects. She does not have any white patches on her tongue. Neck: She does not have any neck pain when she moves her neck or head. Lungs: Clear to auscultation. Cardiovascular: Heart rate is regular. Thorax: The patient has an increased AP diameter of the chest. Abdomen: Soft and nontender. Neurologic: The patient is alert. She is able to ambulate. There is no tremor. IMAGING AND LABORATORY DATA: CT scan of the chest shows possible bilateral infiltrates and a left upper lobe cavitary lesion, which is not changed in size. Immunoglobulin levels are pending. There is no creatinine in the computer for today either. CBC shows a white count of 8110, hemoglobin 13, and a platelet count of 324,000. ASSESSMENT AND PLAN: The patient does have a Pseudomonas purulent bronchitis. She may also have a bilateral pneumonia. The patient has a cavitary lesion, which has not changed. My plan is to continue with both her intravenous Zosyn and the tobramycin by inhalation. Immunoglobulin level result is pending. If the IgG is low, then I plan on giving her an immunoglobulin infusion. COMORBIDITIES: The patient is elderly. She has COPD. She was a cigarette smoker. She told me she stopped approximately 10 years ago. 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 The immunoglobulin levels that I ordered yesterday, there is no report about them as of yet today. If the IgG level is low, I will plan on giving her an IVIG infusion, but to the best of my memory, her immunoglobulin levels have been normal when she has been checked for them in the past. cc: Bartolo Boothe MD
[2019-01-27] MEDS: TOBRAMYCIN INH SCH ×2 (08:54→20:30)
[2019-01-27] MEDS: MUCOMYST 20% INH SCH (08:55)
[2019-01-27] MEDS: INCRUSE ELLIPTA INH SCH (08:56)
[2019-01-27] MEDS: ALTACE PO SCH (09:08)
[2019-01-27] MEDS: THERA M PLUS PO SCH (09:08)
--- NOTE | 2019-01-27 12:30 | PROGRESS NOTE ---
DATE: 01/27/2019 SUBJECTIVE: This morning, Ms. Alford refers to be doing a lot better. She was sitting up in her bed. Her son was at the bedside at the time of the encounter. OBJECTIVE: Vital Signs: Blood pressure is 141/69, pulse of 60, respirations are 16, temperature is 97.5. General Examination: Ms. Alford is an 83-year-old, female. She is in bed. Not seemingly distressed. HEENT: Mucosa is pink and moist. Anicteric. Acyanotic. Neck: Supple. Chest: Air entry is bilaterally reduced. There is end-expiratory distal wheezing and crackles in the posterior lung muir. Cardiovascular: Regular rate and rhythm. No murmurs, no rubs, no gallops. GI: Abdomen is soft, nontender. Bowel sounds present. Extremities: No pedal edema. 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 Musculoskeletal: There is an old scar on the left posterior chest wall. Laboratory Data: WBC is 8.11, hemoglobin is 13.0, platelet count of 324,000. Chemistry is also reviewed and is completely unremarkable. Immunoglobulins: IgG level is normal. ASSESSMENT: 1. Recurrent Pseudomonas aeruginosa pneumonia. Patient is currently on Zosyn and inhaled tobramycin. Infectious disease and pulmonary medicine are on board. 2. Advanced chronic obstructive pulmonary disease, in exacerbation. We will continue with the current management. 3. Acute on chronic hypoxemic respiratory failure. 4. Clinical volume depletion, improved. 5. Hypertension, controlled on medication. 6. Dyslipidemia, stable. 7. Generalized weakness. Physical therapy is on board. PLAN: In general, I think Ms. Alford is doing fairly okay. She is less symptomatic today than days before. We are going to continue with her current antimicrobial therapy and will be pending further recommendations from both ID and pulmonary medicine. cc: Alfredo Reyes MD
--- NOTE | 2019-01-27 16:29 | GENERAL SURGERY CONSULTATION ---
DATE: 01/27/2019 HISTORY OF PRESENT ILLNESS: Ms. Alford is an 83-year-old with known COPD, whom I know from a previous thoracotomy and lobectomy. She also has an abdominal aortic aneurysm repair. She now is admitted with pneumonia. She has poor IV access, and I have been asked to see her about a port placement. PAST MEDICAL HISTORY: Her other medical problems include hypertension, hyperlipidemia. PAST SURGICAL HISTORY: Other surgery includes appendectomy, cholecystectomy, and hip replacement. SOCIAL HISTORY: She does live alone. She denies tobacco usage. MEDICATIONS: Listed. ALLERGIES: She is intolerant of hydrocodone. REVIEW OF SYSTEMS: Pertinent for shortness of breath and fevers. PHYSICAL EXAMINATION: Afebrile, heart rate 68, blood pressure 141/69. No clavicular distortion. She has bilateral breath sounds. Abdomen is soft. No peripheral edema. She is awake and alert, a bit confused. DIAGNOSTIC STUDIES: White count is 8000. Chemistry is okay. PLAN: The plan will be a port placement on Sunday, the . I have discussed this with her. She understands and agrees to proceed. cc: Doug Peters MD
--- NOTE | 2019-01-27 21:23 | PULMONOLOGY PROGRESS NOTE ---
DATE: 01/27/2019 SUBJECTIVE: Patient is awake and alert. She continues to have cough and sputum production. She is without new complaints. OBJECTIVE: Vital Signs: The patient has been afebrile for the last 24 hours. Blood pressure 121/69, heart rate 68, respiratory rate 16, oxygen saturation 99% on nasal cannula. HEENT: Pupils are equal and reactive. Oropharynx is clear. Neck: Supple. Chest: Rhonchi bilaterally. Cardiac: S1, S2. Abdomen: Soft, without hepatosplenomegaly. Extremities: Without edema. LABORATORIES: CT scan of the thorax was performed yesterday. Diffuse emphysematous changes noted. Cavitary lesion in the apical portion on the left is now more scar-like. She has bronchiectatic changes, most prominent in the left base, with areas of consolidation in the left and right bases. IMPRESSION: An 83-year-old with: 1. Chronic obstructive pulmonary disease. 2. Pseudomonal infection with exacerbation of bronchiectasis and bibasilar pneumonia. 3. Dyspnea on exertion. 4. Acute on chronic hypoxemic respiratory failure. 5. Remote history of lung cancer. RECOMMENDATIONS: 1. Antibiotic regimen. 2. Continue bronchodilators. 3. Anticipate placement of Port-A-Cath on Sunday, as outlined by Dr. Doug Peters's consultation note. cc: Germán Mack MD
[2019-01-27] MEDS: PRAVACHOL PO SCH (21:50)
[2019-01-28] MEDS: DUONEB (A & A) INH SCH ×7 (00:25→23:49)
[2019-01-28] MEDS: ZOSYN 4.5 GM in NS 100 ML IV SCH ×4 (05:17→23:15)
[2019-01-28] MEDS: TOBRAMYCIN INH SCH ×2 (07:32→19:38)
[2019-01-28] MEDS: MUCOMYST 20% INH SCH (08:00)
[2019-01-28] MEDS: INCRUSE ELLIPTA INH SCH (08:00)
[2019-01-28] MEDS: THERA M PLUS PO SCH (09:01)
[2019-01-28] MEDS: ALTACE PO SCH ×2 (09:01→11:51)
--- NOTE | 2019-01-28 12:23 | PROGRESS NOTE ---
DATE: 01/28/2019 SUBJECTIVE: This morning, Ms. Alford refers to be doing a whole lot better. Denies any new complaints. Still has a sporadic cough which is nonproductive. OBJECTIVE: Vital Signs: Blood pressure is 127/61, pulse of 60, respirations are 20, temperature 97.8 degrees. General Examination: Ms. Alford is an 83-year-old, female. She is in bed. No distress. HEENT: Mucosa is pink and moist. Anicteric. Acyanotic. Neck: Supple. Chest: Air entry is bilaterally reduced. There is still diffuse and distant wheezing and some crackles but no rhonchi. Cardiovascular: Regular rate and rhythm. No murmurs, no rubs, no gallops. GI: Abdomen is soft, nontender. Bowel sounds present. There is no hepatosplenomegaly. Extremities: No pedal edema. Distal pulses are present. 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 There is no focal neurological deficit. Musculoskeletal: There is an old scar on the left posterior chest wall. Laboratory Data: None for today and no imaging studies today. The patient's immunoglobulin level has shown IgG of 866, which is within normal range. ASSESSMENT: 1. Recurrent Pseudomonas aeruginosa pneumonia. The patient is currently on Zosyn and inhaled tobramycin. She continues to make improvement. Pulmonary medicine and infectious disease are on board. 2. Advanced chronic obstructive pulmonary disease with bronchiectasis, in exacerbation. Patient is improving. 3. Acute on chronic hypoxemic respiratory failure, stabilized. 4. Clinical volume depletion on presentation, resolved. 5. Hypertension, is controlled. 6. Dyslipidemia. 7. Generalized weakness. The patient is with physical therapy. PLAN: In general, I think Ms. Alford is doing a whole lot better. She is less symptomatic today. She is saturating about 97% on 2 L and sometimes on room air. She is getting near time for possible discharge. She is pending a port placement tomorrow by Dr. Peters and hopefully after that, she can be discharged. We are waiting on infectious disease for home antibiotic arrangements. cc: Alfredo Reyes MD
--- NOTE | 2019-01-28 13:45 | INFECTIOUS DISEASE PROGRESS NO ---
DATE: 01/28/2019 PRESENT ILLNESS: The patient has a Pseudomonas purulent bronchitis and bilateral pneumonia. The patient's immunoglobulin levels show that the IgG level was 866, but unfortunately the IgA level was less than 5. MEDICATIONS: The patient is receiving IV Zosyn and tobramycin by inhalation. PHYSICAL EXAMINATION: Vital Signs: Temperature is 97.8 degrees, pulse 68, respirations 20, blood pressure 127/61. General: This is a chronically ill-appearing elderly female. She is in no acute distress. Head/eyes/ears/nose/throat: She can hear my spoken words and see near objects. I do not see any white patches in her mouth. Neck: There is no pain in her neck with movement of the head or neck. Lungs: There were bilateral rhonchi. Cardiovascular: Heart rate is regular. Thorax: The patient has an increased AP diameter of the chest. Abdomen: Soft and nontender. Neurologic: The patient is alert. She can move her extremities. There is no tremor. LAB AND RADIOGRAPHIC STUDIES: There is no new radiographic study today. The patient's IV immunoglobulin levels show an IgG of 866 and unfortunately the IgA level is less than 5. Sputum culture grew Pseudomonas. Blood cultures are negative. ASSESSMENT AND PLAN: Patient has Pseudomonas bronchitis and pneumonia. 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 Unfortunately, there is not a product to replenish the low IgA level. For now, the plan will be to continue with IV Zosyn and tobramycin by inhalation. COMORBIDITIES: The patient is elderly. She has COPD from cigarette smoking. She unfortunately has a very low IgA level which we may not be able to correct. cc: Bartolo Boothe MD
[2019-01-28] MEDS: PRAVACHOL PO SCH (21:06)
--- NOTE | 2019-01-28 21:54 | PULMONOLOGY PROGRESS NOTE ---
DATE: 01/28/2019 SUBJECTIVE: The patient is awake, alert, and conversant. She reports she is feeling better. She reports her sputum production has diminished. OBJECTIVE: Vital Signs: Blood pressure 111/73, heart rate 73, respiratory rate 20, oxygen saturation 93% on room air. HEENT: Pupils are equal and reactive. Oropharynx is clear. Neck: Supple. Chest: Occasional rhonchi bilaterally. Cardiac: S1, S2. Abdomen: Soft. Extremities: Without edema. LABORATORIES: No new laboratory data. IMPRESSION: 83-year-old with: 1. Bibasilar pneumonia. 2. Bronchiectasis with exacerbation. 3. Chronic obstructive pulmonary disease. 4. Dyspnea on exertion. 5. Continued need for recurrent antibiotics due to drug-resistant pathogens. 6. History of lung cancer. PLAN: 1. Continue antibiotics as outlined by Dr. Austin Boothe. 2. Continue bronchodilators. 3. Anticipate Port-A-Cath placement tomorrow. cc: Germán Mack MD
[2019-01-29] MEDS: ZOSYN 4.5 GM in NS 100 ML IV SCH ×4 (03:08→20:50)
[2019-01-29] MEDS: DUONEB (A & A) INH SCH ×5 (03:26→19:07)
[2019-01-29] MEDS: TOBRAMYCIN INH SCH ×2 (07:33→19:15)
[2019-01-29] MEDS: MUCOMYST 20% INH SCH (08:40)
[2019-01-29] MEDS: INCRUSE ELLIPTA INH SCH (08:40)
[2019-01-29] MEDS: THERA M PLUS PO SCH (09:33)
[2019-01-29] MEDS: ALTACE PO SCH (09:33)
[2019-01-29] MEDS ORDERED: DIPRIVAN 1% ONE ×2 (13:27→16:13)
[2019-01-29] MEDS ORDERED: XYLOCAINE-MPF 2% ONE (13:27)
--- NOTE | 2019-01-29 13:52 | INFECTIOUS DISEASE PROGRESS NO ---
DATE: 01/29/2019 PRESENT ILLNESS: Ms. Alford has bronchiectasis exacerbation and multi-drug resistant Pseudomonas pneumonia. MEDICATIONS: Today is day 4 of Zosyn 4.5 g IV every 6 hours, with tobramycin 300 mg inhaled every 12 hours. PHYSICAL EXAMINATION: Vital Signs: Temperature is 98 degrees, pulse rate 78, respiratory rate 17, blood pressure 155/77, O2 saturation is 100% on 2 L nasal cannula. General: This is a chronically ill-appearing, elderly female. She is lying in the bed, currently in no acute distress. HEENT: Atraumatic, normocephalic. Oral mucous membranes are pink and moist. Conjunctivae are pink. Neck: Supple. Trachea is midline. Cardiovascular: Heart rate and rhythm are generally regular. Sinus rhythm on the monitor with occasional premature atrial contractions. Respiratory: Lung sounds have mild scattered rales noted bilaterally, diminished in the bases. Abdomen: Soft, flat, and nontender. Bowel sounds are active. Neurologic: She is awake, alert, oriented, and moving all extremities in the bed independently. LABORATORY AND X-RAY: None available today. ASSESSMENT AND PLAN: Ms. Alford is being treated for a multidrug resistant Pseudomonas pneumonia. Today, she is feeling better. The plan at this point is to have a Port-A-Cath inserted by Dr. Peters. Once that is done, the plan will be to send her home with her intravenous Zosyn 4.5gm every 8 hours to be administered at home per Port-A-Cath. Orders have been put in to consult [facility]. We have also called [facility] to have her Tobramycin ordered so she can get this per nebulizer at home as well. We will follow up with her in the office in 2 weeks. These plans have been discussed with and recommended by Dr. Boothe. COMORBIDITIES: For Ms. Alford include that she is elderly with cigarette smoking and COPD, and IgA deficiency. Dictated by PAYAL Cummins for Bartolo Boothe MD cc: Bartolo Boothe MD [facility]
--- NOTE | 2019-01-29 13:59 | PROGRESS NOTE ---
DATE: 01/29/2019 SUBJECTIVE: This morning, Ms. Alford refers to be feeling a lot better. She is not having any more cough. No wheezing. She is awaiting for a port placement today. OBJECTIVE: Vital signs: Blood pressure is 155/77, pulse of 78, respirations 17, temperature 98 degrees. Patient was saturating 100% on 2 L. General: Ms. Alford is an 83-year-old female. She is in bed in no distress. HEENT: Mucosa is pink and moist. Anicteric. Acyanotic. Neck: Supple. Chest: Good air entry bilateral. A few distant wheezing. No crackles. No rhonchi. Cardiovascular: Regular rate and rhythm. No murmurs, no rubs, no gallops. Gastrointestinal: Abdomen is soft, nontender. Bowel sounds present. Extremities: No pedal edema. Central nervous system: Patient is awake, alert, oriented. LABORATORY DATA AND IMAGING: No lab work for this morning and no imaging studies. CURRENT MEDICATIONS: Have all been reviewed and there are no changes. ASSESSMENT: 1. Recurrent Pseudomonas aeruginosa pneumonia. The patient is on Zosyn and inhaled tobramycin. Infectious Disease and Pulmonary Medicine are on board. 2. Advanced chronic obstructive pulmonary disease with bronchiectasis in exacerbation, improved. 3. Acute on chronic hypoxemic respiratory failure. Patient is back to her baseline oxygen demands. 4. Clinical volume depletion on presentation, resolved. 5. Hypertension, controlled. 6. Dyslipidemia. 7. Generalized weakness, improving with physical therapy. PLAN: In general, Ms. Alford is doing a whole lot better. Respiratory symptoms have significantly improved. She is pending a port placement today and hopefully we can be able to discharge her first thing tomorrow morning. Ms Alford is also pending home antibiotics arrangement by ID. cc: Alfredo Reyes MD
[2019-01-29] MEDS ORDERED: NS 250 ML ONE (15:41)
[2019-01-29] MEDS ORDERED: KEFZOL ONE (15:41)
[2019-01-29] MEDS ORDERED: XYLOCAINE 1%/EPI 1:100,000 ONE (15:41)
[2019-01-29] MEDS: ULTRAM PO PRN (18:58)
--- NOTE | 2019-01-29 19:00 | OPERATIVE NOTE ---
PROCEDURE DATE: 01/29/2019 PREOPERATIVE DIAGNOSIS: Poor venous access. POSTOPERATIVE DIAGNOSIS: Poor venous access. PROCEDURE: Left internal jugular vein port placement with ultrasound and fluoroscopic guidance. SURGEON: Doug Peters MD. SPECIAL EFFECTS MAKEUP ARTIST: Tonya Vee. DESCRIPTION OF PROCEDURE: Satisfactory monitoring of anesthesia care was established. IV sedation was accomplished. The left upper anterior chest and neck were prepped and draped in a sterile fashion. We anesthetized the skin in the deltopectoral groove. We incised the skin, developed subcutaneous pocket. We attempted one attempt at the subclavian, actually two attempts, but failed to gain access. We obtained ultrasound and imaged the internal jugular vein. We anesthetized the skin, made a small stab incision and accessed the internal jugular vein and passed the guidewire into the innominate vein. The wire tended to go up the superior vena cava. We passed our dilators, shot a vena cavogram. There was rapid evacuation of flow, so we used a Glidewire which did find its way downward, so we pulled the dilator off, placed the sheath back on it and passed it again over the Glidewire. We removed the dilator and Glidewire. After tunneling the polyurethane catheter to the neck, we then passed the polyurethane catheter through the sheath, into the innominate vein. We then had to use a Glidewire once again to orient the catheter inferiorly caudad toward the heart. It seems that it went down in the superior vena cava. It is possible I guess it could have gone to the azygos vein. We were able to aspirate blood and irrigate it with saline. We gave the patient 5 mL of Hep-Lock, we secured it. We did secure it to the port, locked it in position, placed it in the port pocket, secured it there with a 2-0 silk. The. We irrigated out the port pocket. We placed 3-0 Polysorb in subcutaneous tissue. We accessed the port and as I said we were able to aspirate blood and give 5 mL of Hep- Lock. We then closed the skin at each incision with 4-0 Polysorb subcuticular stitches. Sterile Telfa and OpSite were applied. She tolerated it well. Was sent to the recovery room in satisfactory condition. cc: Doug Peters MD
[2019-01-29] MEDS: PRAVACHOL PO SCH (20:47)
--- NOTE | 2019-01-29 22:46 | PULMONOLOGY PROGRESS NOTE ---
DATE: 01/29/2019 SUBJECTIVE: The patient is awake, alert, and conversant. She reports some tenderness associated with the Port-A-Cath placement. OBJECTIVE: Vital Signs: Blood pressure 157/79, heart rate 76, respiratory rate 21, oxygen saturation 99% on nasal cannula. HEENT: Pupils are equal and reactive. Oropharynx appears clear. Neck: Supple. Chest: Reveals Port-A-Cath placement in the left superior anterior chest wall with bandages in place. There are occasional rhonchi bilaterally. Cardiac exam: S1, S2. Abdomen: Soft. Extremities: Without edema. IMPRESSION: An 83-year-old with: 1. Bibasilar pneumonia. 2. Bronchiectasis with exacerbation. 3. Chronic obstructive pulmonary disease. 4. Recurrent antibiotic requirements for drug-resistant pathogens. 5. Dyspnea on exertion. 6. History of lung cancer. PLAN: 1. Anticipate discharge soon with outpatient IV and inhaled antibiotics. 2. Continue bronchodilators. 3. Obtain chest x-ray for discharge baseline tomorrow. cc: Germán Mack MD
[2019-01-30] MEDS: DUONEB (A & A) INH SCH ×4 (01:52→11:10)
[2019-01-30] MEDS: ULTRAM PO PRN (02:00)
[2019-01-30] MEDS: ZOSYN 4.5 GM in NS 100 ML IV SCH ×2 (03:00→09:09)
--- NOTE | 2019-01-30 07:33 | Diag Imaging Result Doc PS360 ---
EXAM: CHEST-PORTABLE INDICATION: dyspnea TECHNIQUE: One view COMPARISON: 01/27/2019 FINDINGS: There has been interval placement of a left chest port. The tip projecting over the lower SVC in the expected position. There are stable COPD changes. Chronic changes, mainly at the right lung base, are stable as well. No new consolidation is identified. Cardiac silhouette is stable. There is no evidence of pneumothorax. IMPRESSION: Interval placement of left chest port with no evidence of pneumothorax. Stable chest, otherwise. Electronically signed by Rafael Perez 01/30/2019 7:31 AM
[2019-01-30] MEDS: TOBRAMYCIN INH SCH (07:34)
[2019-01-30] MEDS: INCRUSE ELLIPTA INH SCH (08:29)
[2019-01-30] MEDS: MUCOMYST 20% INH SCH (08:29)
[2019-01-30] MEDS: THERA M PLUS PO SCH (09:08)
[2019-01-30] MEDS: ALTACE PO SCH (09:09)
[2019-01-30 12:09] VITALS: BP 142/64
--- NOTE | 2019-01-30 14:16 | GENERAL SURGERY PROGRESS NOTE ---
DATE: 01/30/2019 She has a day after placement of left internal jugular vein port. She is prepared for discharge. Her port is ready for use. I have asked her to keep it covered until Sunday morning. She will return to see me in 2 weeks. cc: Doug Peters MD
--- NOTE | 2019-01-30 18:44 | DISCHARGE SUMMARY ---
ADMISSION DATE: 01/24/2019 DISCHARGE DATE: 01/30/2019 DISPOSITION: Is home with home health. FOLLOW-UP: 1. Dr. Joseph. 2. Dr. Boothe. 3. Dr. Mack. CONSULTATION DURING THIS ADMISSION: ID was consulted patient was seen by Dr. Boothe. Pulmonary medicine was consulted. Patient was seen by Dr. Mack. IMAGING STUDIES OF SIGNIFICANCE: 1. A chest x-ray showed no pneumonia. 2. A CT scan of the chest without contrast shows COPD/emphysematous changes, some mild pleural thickening, scarring at the left upper lobe at the location of the cavitary lesion. MICROBIOLOGY DATA: 1. Blood cultures were negative. 2. Sputum culture done on 01/21/2019 showed Pseudomonas aeruginosa. ADMISSION DIAGNOSES: 1. Pseudomonal aeruginosa sputum culture. 2. Leukocytosis. 3. Hyponatremia. 4. Hypoxemia. DIAGNOSIS AT THE TIME OF DISCHARGE: 1. Acute on chronic hypoxemic respiratory failure improved. 2. Recurrent Pseudomonas aeruginosa pneumonia. The patient was treated with Zosyn and inhaled tobramycin. Infectious disease and Pulmonary were on board. 3. Advanced chronic obstructive pulmonary disease with bronchiectasis in exacerbation, improved. 4. Clinical volume depletion on presentation, resolved. 5. Hypertension, controlled. 6. Dyslipidemia. 7. Generalized weakness, improved with physical therapy. DISCHARGE MEDICATIONS: 1. Pravastatin 40 mg p.o. at bedtime. 2. Ramipril 2.5 mg p.o. daily. 3. Meloxicam 50 mg p.o. daily. 4. Mucinex 600 p.o. b.i.d. 5. Mucomyst for inhalation p.r.n. 6. Advair inhaler. 7. Ellipta inhaler 1 puff daily. 8. Tobramycin for some inhalation. 9. Zosyn. PRESENTING COMPLAINT: Worsening shortness of breath. HISTORY OF PRESENTING COMPLAINT: Ms. Alford is an 83-year-old female who is known to have advanced COPD with bronchiectasis with recurrent pseudomonal infections, who presented to the emergency department because of shortness of breath, increased demand of oxygen and a sputum culture from her primary care doctor days before was showing Pseudomonas. Ms Alford was subsequently admitted for further medical care. HOSPITAL COURSE: Ms. Alford was admitted to the medical floor. Was started on broad-spectrum IV antibiotics (Zosyn and tobramycin inhalation therapy. She seems to have progressed on every daily basis. She was seen also by Infectious Disease as well as Pulmonary Medicine. Throughout the hospital course Ms Alford continues to show remarkable improvement. A port was requested because of the fact that she is going to be needing IV antibiotics for some time and keeps having this persistent multi-drug resistant Pseudomonas. It was thought that she is going to be needing the IV antibiotics quite often. A port was therefore placed by surgery yesterday. A repeat chest x-ray this morning does not show any complications. Thomas has been consulted for IV antibiotics today. This morning Ms. Alford refers to be feeling okay, no shortness of breath, no coughing. She thinks she is back to her baseline. She is saturating about 97% on 2 L. Her physical exam is consistent with some crackles in the posterior lung muir, otherwise nothing new. We think Ms Alford is clinically stable for discharge. All the discharge instructions have been discussed with her she voices understanding. TIME SPENT FOR DISCHARGE: Is 35 minutes. cc: MD Shantel Jacob MD Leroy F. Harris, MD James E. Boyle, MD MTDD
== END 2019-01-30 15:07 | disposition home health service (06) | DRG 853 ==
LOC: ED 14:38 → 3N 17:39
PROVIDERS: ATTEND Internal Medicine
CPT/HCPCS: 51701; 71010; 71045; 71250; 77001; 80048; 80053; 80307; 80323; 81001; 82550; 82784; 82805; 83605; 83735; 83880; 83887; 84100; 84484; 85025; 85610; 85730; 87040; 87070; 87077; 87186; 87205; 93005; 94640; 94761; 94762; 96365; 96367; 96375; 99285; 99291; A9270; C1788; G0480; G6055; J0690; J1720; J2543; J2930; J3370; J7030; J7050; P9612; Q9967

== ENCOUNTER 2019-11-07 16:38 | Inpatient (IN) ==
[2019-11-07] MEDS ORDERED: NS 1,000 ML IV ONE ×2 (17:06→18:18)
[2019-11-07 17:49] LABS: BASO% 0.5 % (0.0-0.8); EOS# 0.06 X1000 (0.0-0.7); EOS% 0.3 % (0.0-10.0); HEMATOCRIT 37.5 % (37.0-47.0); HEMOGLOBIN 12.7 g/dL (12.0-16.0); IMM GRAN# 0.13 X1000 (0.0-0.04); IMM GRAN% 0.7 % (0.0-0.5); LYMPH# 1.32 X1000 (1.2-3.4); LYMPH% 6.6 % (20.5-51.1); MCH 29.5 PG (27-31); MCHC 33.9 g/dL (33-37); MONO# 1.64 X1000 (0.11-0.59); MONO% 8.2 % (1.7-9.3); MPV 9.1 FL (7.4-10.4); NEUT# 16.72 X1000 (1.4-6.5); NEUT% 83.7 % (42.2-75.2); PLT 379 X1000 (130-400); RBC 4.31 XMIL (4.2-5.4); RDW 14.4 % (11.5-14.5); WBC 19.97 X1000 (4.8-10.8)
[2019-11-07 18:12] LABS: CALCIUM 10.2 mg/dL (8.8-10.2); CREATININE 2.5 mg/dL (0.5-0.9); POTASSIUM 4.6 mmol/L (3.5-5.1)
--- NOTE | 2019-11-07 18:25 | Diag Imaging Result Doc PS360 ---
KNEE 3 VIEWS RIGHT - 11/07/2019 INDICATION: FALL TECHNIQUE: Three views COMPARISON: None FINDINGS: There is no fracture or subluxation. There is chondrocalcinosis of the menisci, presumably degenerative. There is peripheral arterial disease. IMPRESSION: No acute injury. Electronically signed by Mickey Long 11/07/2019 6:22 PM
--- NOTE | 2019-11-07 18:56 | Diag Imaging Result Doc PS360 ---
CHEST-1 VIEW - 11/07/2019 INDICATION: SOB COMPARISON: 10/01/2019 FINDINGS: Stable left chest port in good position. Stable small focal opacity in the medial right lung base. No new infiltrates. Lung volumes are much lower. Heart size is top normal. IMPRESSION: Much lower lung volumes. Otherwise no change from prior. Electronically signed by Mickey Long 11/07/2019 6:53 PM
[2019-11-07] MEDS ORDERED: ROCEPHIN 1 GM in NS 50 ML IV ONE (19:51)
--- NOTE | 2019-11-07 19:52 | PROVIDER DOCUMENTATION ---
This chart was entered by Yvette Mccartney Scribe, acting as scribe for Rico Finn MD. HPI-Female /OB/Breast - General Chief Complaint: Female Stated Complaint: FEMALE Time Seen by Provider: 11/07/19 16:48 Source: reports: patient Allergies/Adverse Reactions: Patient Allergies Allergy/AdvReac Type Severity Reaction Status Date / Time hydrocodone bitartrate * AdvReac NAUSEA/VOMI Verified 11/07/19 18:02 [From Lortab] TING Home Medications: Home Medication List Medication Instructions Recorded Confirmed Last Taken Type Pravastatin Sodium 40 mg PO QHS 01/10/14 11/07/19 11/07/19 History Ramipril [Altace] 2.5 mg PO DAILY #0 01/19/14 11/07/19 11/07/19 Rx Meloxicam [Mobic] 15 mg PO DAILY PRN #0 03/29/14 11/07/19 11/07/19 Rx Guaifenesin E.r. [Mucinex] 600 mg PO BID 10/11/15 11/07/19 11/07/19 History Multivitamin with Minerals 1 each PO DAILY 07/05/16 11/07/19 11/07/19 History [Multiple Vitamin] Acetylcysteine 3 ml INH DAILY 10/22/17 11/07/19 11/07/19 History Azelastine 137 Mcg Nasal [place] 2 spray JARED BID PRN 10/22/17 11/07/19 11/07/19 History [Astelin Nasal [place]] Umeclidinium [place] Inhaler 1 puff INH DAILY 10/22/17 11/07/19 11/07/19 History [Incruse Ellipta] Piperacillin Sodium/Tazobactam 4.5 gm IV Q6HR #30 vial 01/30/19 11/07/19 Unknown Rx [Zosyn 4.5 Gram Vial] - History of Present Illness-Female /OB Nature of Presenting Problem: 83 y/o female presents to the ED with complaint of urinary retention times four hours. She also received notification of abnormally elevated labs pertaining to kidney function from Home Health this am but the patient cannot state specifically what was elevated and does not have the results with her. Labs were performed by Dr. Awilda Green/Dr. Boothe. The patient also states she fell recently and her right knee is tender medially. She also complains of cough which is chronic, has a chest port, and has been receiving antibiotic treatment for bacteria in her lungs for at least one year intermittently. Quality of Pain: reports: none Onset/Duration: reports: 4-6 hours ago Timing: reports: still present Vaginal Symptoms: reports: no symptoms Urinary Symptoms: reports: retention. denies: dysuria, hematuria Associated Symptoms: denies: cough, fever/chills Similar Symptoms Previously?: No Recently seen or treated by another doctor?: No (f) Review of Systems - Adult - REVIEW OF SYSTEMS - ADULT Constitutional: denies: chills, fever, weight gain Eyes: reports: no symptoms reported Ears, Nose, Mouth & Throat: reports: no symptoms reported Cardiovascular: reports: no symptoms reported Respiratory: reports: chronic cough. denies: hemoptysis, wheezing Gastrointestinal: reports: no symptoms reported Genitourinary: reports: urinary retention. denies: dysuria, flank pain, hematuria Musculoskeletal: reports: no symptoms reported Integumentary: reports: no symptoms reported Neurological: reports: no symptoms reported Psychiatric: reports: no symptoms reported Endocrine: reports: no symptoms reported Hematologic/Lymphatic: reports: no symptoms reported Allergic/Immunologic: reports: no symptoms reported All Other Systems: Reviewed and Negative Past History - Adult - PAST MEDICAL HISTORY-ADULT Review of Records: reports: Old Records Reviewed, Nursing Assessment Review, Medications Reviewed Major Childhood Illnesses: reports: denies history Cardiovascular: reports: aortic disease (AAA), HTN, hyperlipidemia Respiratory: reports: asthma, COPD, cancer (BELTRAN, s/p lobectomy), pneumonia (hx of recurrent) Gastrointestinal: reports: denies history Obstetrical/Gynecological: reports: denies history Genitourinary: reports: denies history Musculoskeletal: reports: denies history Neurological: reports: denies history Endocrine/Immune: reports: denies history Other Conditions: reports: other (AAA) - PRIOR SURGERIES/PROCEDURES Surgical/Procedure History: reports: appendectomy, cholecystectomy, joint replacement (hip replacement), other (Left upper lung lobectomy ) - IMMUNIZATION STATUS Childhood Immunizations: See Nurse Assessment Flu Vaccine: See Nurse Assessment - FAMILY HISTORY Family History: diabetes - SOCIAL HISTORY Smoking: other (former smoker) Substance Use: none/never Physical Exam-General - PHYSICAL EXAM-ADULT Initial Vital Signs Reviewed: Yes - CONSTITUTIONAL General Appearance: alert, no apparent distress - EYES Eyes: PERRL/EOMI - HEAD, EARS, NOSE, MOUTH & THROAT HENMT: normocephalic/atraumatic, moist mucous membranes - NECK Neck: full range of motion, supple - RESPIRATORY Respiratory: lungs clear, normal breath sounds. negative: rales, rhonchi, whee zing - CARDIOVASCULAR Cardiovascular: regular rate, rhythm - GASTROINTESTINAL (ABDOMEN) Abdominal Exam: non tender, soft. negative: other (suprapubic tenderness) - GENITOURINARY Female Genitalia/Pelvic Exam: deferred - MUSCULOSKELETAL Extremity: tenderness (medial right knee, brace in place). negative: pulse deficit - SKIN Integumentary: normal color, warm/dry - NEUROLOGIC Neurologic: grossly normal Progress - PLAN OF CARE/RESULTS Progress/Plan/Lab Results: Vital Signs - 8 hr 11/07/19 16:44 11/07/19 19:46 Temperature 98.5 F 98.1 F Pulse Rate 88 86 Respiratory Rate 18 18 Blood Pressure 126/62 179/48 O2 Sat by Pulse Oximetry 96 94 L Laboratory Results - last 24 hr 11/07/19 11/07/19 11/07/19 17:30 17:30 18:35 WBC 19.97 H RBC 4.31 Hgb 12.7 Hct 37.5 MCV 87.0 MCH 29.5 MCHC 33.9 RDW Std Deviation 14.4 Plt Count 379 MPV 9.1 Immature Gran % (Auto) 0.7 H Neut % (Auto) 83.7 H Lymph % (Auto) 6.6 L [place] % (Auto) 8.2 Eos % (Auto) 0.3 Baso % (Auto) 0.5 Immature Gran # (Auto) 0.13 H Neut # (Auto) 16.72 H Lymph # (Auto) 1.32 Forrest # (Auto) 1.64 H Eos # (Auto) 0.06 Baso # (Auto) 0.10 Sodium 132 L Potassium 4.6 Chloride 97 L Carbon Dioxide 22 L Anion Gap 13 BUN 40 H Creatinine 2.5 H Estimated GFR/1.73 m2 18 BUN/Creatinine Ratio 16 Glucose 133 H Calculated Osmolality 276 Calcium 10.2 Plasma Lactate 1.8 Orders Category Date Time Status Bladder Scan and Record Result ORDERED Care 11/07/19 16:52 Active Straight Catheterization ORDERED Care 11/07/19 18:18 Active CHEST-1 VIEW [RAD] Stat Exams 11/07/19 18:18 Completed KNEE 3 VIEWS RIGHT [RAD] Stat Exams 11/07/19 16:58 Completed BLOOD CULTURE [BLDCUL] Stat Lab 11/07/19 18:35 Results BMP [BASIC METABOLIC PANEL] [CHEM] Stat Lab 11/07/19 17:30 Completed CBC WITH DIFF [HEME] Stat Lab 11/07/19 17:30 Completed LACTATE, PLASMA [CHEM] Stat Lab 11/07/19 18:35 Completed UA NIMS W/REFLEX CULT [URINALYSIS] Stat Lab 11/07/19 16:52 Uncollected 0.9% Sodium Chloride Inj [Ns] 1,000 ml Med 11/07/19 18:18 Active IV 125 mls/hr 0.9% Sodium Chloride Inj [Ns] 1,000 ml Med 11/07/19 17:06 Discontinued IV 999 mls/hr Rocephin 1 gm/Ns IV Now Med 11/07/19 19:51 Ordered CefTRIAXONE [Rocephin] 1 gm 0.9% Sodium Chloride Inj [Ns] 50 ml IV NOW Result Diagrams: 11/07/19 17:30 11/07/19 17:30 - REASSESSMENT Reassessment #1 Time Reassessed: 19:52 Status: improving (REMAINS ALERT. NO DISTRESS. NORMAL PERIPHERAL PERFUSION) - XRAY 1 XRAY: Right XRAY Study: Knee Impression: Normal (KNEE 3 VIEWS RIGHT - 11/07/2019 INDICATION: FALL TECHNIQUE: Three views COMPARISON: None FINDINGS: There is no fracture or subluxation. There is chondrocalcinosis of the menisci, presumably degenerative. There is peripheral arterial disease. IMPRESSION: No acute injury. Katarina ctronically signed by Mickey Long 11/07/2019 6:22 PM) 2 XRAY Study: Chest Comparison with other Films: changes noted Departure - Departure Date of Disposition Decision: 11/07/19 Time of Disposition Decision: 18:17 DIAGNOSIS: Acute renal failure (ARF), Leukocytosis Disposition: ADMITTED INPATIENT 09 Certified Medical Emergency: Emergent Condition: Stable Referrals and Follow-Ups: Shantel Joseph MD [Primary Care Provider] - - Critical Care Note This patient required my direct & personal management of CC.: No Attestation - Physician/ JOCELYN Attestation Patient care was provided by Advanced Practice Provider:: No The physician spent face to face time with patient:: Yes Advanced Practice Provider documentation review:: Supervising physician onsite and consulted in the evaluation and care of this patient. The physician did have a face to face encounter with the patient. This chart was documented by the indicated scribe, (Yvette Mccartney, Scribe) and accurately reflects the services I performed and decisions made by me, Rico Finn MD, as attested by the provider's signature.
[2019-11-07 20:19] LABS: URINE SOURCE CATH
[2019-11-07 20:26] LABS: BILIRUBIN URINE NEGATIVE (NEGATIVE); BLOOD URINE SMALL (NEGATIVE); COLOR YELLOW; GLUCOSE URINE 500 mg/dL (NEGATIVE); KETONE URINE NEGATIVE (NEGATIVE); LEUKOCYTES URINE NEGATIVE (NEGATIVE); NITRITE URINE NEGATIVE (NEGATIVE); PH URINE 7.5; PROTEIN URINE 600 mg/dL (NEGATIVE); SP GRAVITY URINE 1.007; TURBIDITY URINE HAZY (CLEAR); UROBILINOGEN URINE NORMAL (NORMAL)
[2019-11-07 20:27] LABS: UR EPITHELIAL CELLS >10 /HPF (<10); URINE BACTERIA NEGATIVE /HPF; URINE RBC <10 /HPF (<10); URINE WBC 20-40 /HPF (<10)
[2019-11-08] MEDS ORDERED: ASTELIN NASAL SPRAY NAS PRN (01:08)
[2019-11-08] MEDS: MERREM 500 MG in NS 50 ML IV SCH ×2 (01:31→15:53)
[2019-11-08] MEDS: PRAVACHOL PO SCH ×2 (01:32→20:12)
[2019-11-08] MEDS: MUCINEX PO SCH ×3 (01:32→20:12)
[2019-11-08] MEDS: NS 1,000 ML IV SCH ×2 (01:32→14:39)
[2019-11-08] MEDS: HEPARIN SUBQ SCH ×3 (01:32→17:55)
--- NOTE | 2019-11-08 01:54 | HISTORY AND PHYSICAL ---
PRIMARY CARE PHYSICIAN: Shantel Love MD. CHIEF COMPLAINT: "I'm unable to pee" of 1 day duration. HISTORY OF PRESENTING COMPLAINT: Patient is an 83-year-old female with history of COPD, bronchiectasis, abdominal aortic aneurysm, hypertension, hyperlipidemia, history of left upper lobe lung cancer status post lobectomy and history of recurrent admissions for Pseudomonas pneumonia, who presents with difficulty urination of 1-day duration. The patient states that she has not been able to urinate despite adequate drinking and eating over the last 1 day. Of note, she said she started this new antibiotic, meropenem 2 days ago, which she is using for recurrent Pseudomonas pneumonia infection, which she has been battling for about a year. She had 2 days doses of meropenem; subsequently, she could not pee despite adequate oral intake, per patient. The patient denies any fever, denies any nausea, denies any vomiting, denies any diarrhea. Denies any rash. Denies any dysuria or frequency. The patient states that she is still having the occasional cough with production of greenish sputum, which has improved a little bit, but she says the quantity of the sputum has remained the same. She says her cough is also worse as well. The patient had a blood work that showed that her creatinine function had gone up and she was requested to be admitted to the hospital, but initially she did not want to come and then she presented to the ER. In the ER, she was noted to have a markedly elevated creatinine of 2.5, which is above her baseline and the hospitalist team was called to admit the patient. PAST MEDICAL HISTORY: That of COPD with bronchiectasis, abdominal aortic aneurysm, hypertension, hyperlipidemia, left upper lobe bronchus in 2011, status post left upper lobe lobectomy, IGA deficiency PAST SURGICAL HISTORY: That of appendectomy, cholecystectomy, the left upper lobe lobectomy, status post hip replacement as well. FAMILY HISTORY: Mother has pancreatic cancer. Father of an [place]. SOCIAL HISTORY: She denies any current use of tobacco use. She is a former smoker. She describes occasional alcohol intake as she takes wine occasionally. ALLERGIES: Lortab. HOME MEDICATIONS: Pravastatin 40 mg daily, ramipril 2.5 mg daily, meloxicam 50 mg daily, guaifenesin 600 mg b.i.d., multivitamins, acetylcysteine 200 mg inhalation, Xalatan, Incruse inhaler. She was also on tobramycin inhaler and IV meropenem as well. REVIEW OF SYSTEMS: She describes constipation for the last 4 days. Otherwise, 12 point review of systems done and was negative, except as stated in the HPI. PHYSICAL EXAMINATION: VITALS: Temperature was 98.1 degrees, pulse 86, respiratory rate 18, blood pressure 117/48, and O2 saturation 94% on 2 L, which is her home oxygen. GENERAL: A pleasant, elderly female in no acute respiratory distress. Not pale, anicteric. Mildly dry oral mucosa. HEENT: Not pale. Anicteric. Mildly dry oral mucosa. CARDIOVASCULAR: S1, S2. No murmurs, rubs, or gallop. RESPIRATORY: Good air entry bilaterally. No wheeze. No crepitations. No added sound. ABDOMEN: No area of tenderness. Bowel sounds normoactive. No organomegaly appreciated. EXTREMITIES: No bilateral pedal edema noted. NEUROLOGICAL: Alert, oriented x3. No focal neurological deficit. SKIN: No skin changes. She has a Port-A-Cath over the left side of the chest noted. LABS: WBC was 19.97, hemoglobin 12.7, hematocrit 37.5, MCV 87, platelet is 379,000. Sodium 132, potassium 4.6, chloride 97, bicarb 22, anion gap 13, BUN 42, creatinine 2.5, which is her baseline. Glucose 133. A urinalysis significant for 600 protein, glucose of 500, blood small, WBCs 20 to 40, epithelial cells was more than 10, bacteria was negative. Her chest x-ray shows much lower lung zones. Otherwise, she has a stable small focal opacity in the medial right lung base. No change compared to a previous x-ray. She had a knee x-ray done that shows no acute injury noted. ASSESSMENT AND PLAN: This is an 83-year-old with history of IgA deficiency, COPD with bronchiectasis, recurrent Pseudomonas pneumonia with positive sputum cultures in the past, hypertension, hyperlipidemia, and history of left upper lobe lung cancer status post lobectomy, who presents with worsening kidney functions and describes history of not being able to urinate as well. In the ER, a bladder scan was done, showed she had no fluid in her bladder. She had to be hydrated to have some urine outputs for urinalysis. 1. Acute kidney injury. 2. Recurrent Pseudomonas pneumonia with positive Pseudomonas in the sputum culture. 3. Hyponatremia, likely secondary to volume depletion. 4. Chronic diagnoses are that of hypertension, hyperlipidemia, chronic obstructive pulmonary disease, not in exacerbation, abdomen aortic aneurysm, and also IgA deficiency. PLAN: 1. Acute kidney injury: The patient's ARIANNA could be from volume depletion from prerenal causes, although the patient denies any vomiting or diarrhea. Suspect the IV antibiotic use also may contribute, as such work up RAIANNA with FEUrea. We will do a random urine urea and a random urine creatinine to calculate the FEUrea. We will also do a urine eosinophils. We will do renal ultrasound as well to rule out any postobstructive cause as well. We will hydrate patient with IV fluids for now and will monitor the creatinine levels closely. We expect improvement in ARIANNA if its mainly a pre renal ARIANNA, but our work up will ascertain if the patient ARIANNA is due to renal or post renal cause. We will renally dose all medications. We will renally dose the meropenem antibiotic and would monitor closely. 2. Recurrent Pseudomonas pneumonia with positive Pseudomonas infection in sputum: The patient was being treated by ID with IV meropenem and inhalation of tobramycin. We will renally dose meropenem now 500 mg q.12 hours. Her Insurance also denied use of tobramycin, as such we will hold off on that. We would have consulted Infectious Disease but informed they are no longer covering the hospital service. Monitor closely. 3. Hyponatremia, likely secondary from volume depletion: Will hydrate patient with normal saline to correct ARIANNA and expect improvement in hyponatremia with IV hydration as well. 4. IgA deficiency: The patient previously worked up in the past but shows IgA levels. No supplement that can be given for now. This probably is the cause of her recurrent pulmonary infections. We will monitor closely. 5. COPD with bronchiectasis: The patient is not in any acute exacerbation at this time. Will continue home inhalers. Expect bronchiectasis is most likely the cause of the patient's recurrent sputum positive results. The patient has had multiple organisms growing in her sputum. The most recent is Pseudomonas in the last 4 months. Monitor closely. 6. Hypertension: We will continue patient's home ramipril dose. 7. Hyperlipidemia: We will continue patient's home pravastatin dose. 8. Abdominal aortic aneurysm: Will continue home statin dose. 9. DVT prophylaxis: Heparin. 10. Code status: DNI, DNR. 11. Disposition: Admit patient as inpatient. The patient will need adequate work up followup acute kidney injury and will discharge when medically stable after kidney function is back to normal and the PNA is improved MTDD
[2019-11-08] MEDS: MUCOMYST 20% INH SCH (07:37)
[2019-11-08 07:38] LABS: CREATININE 3.3 mg/dL (0.5-0.9); POTASSIUM 4.2 mmol/L (3.5-5.1)
[2019-11-08] MEDS ORDERED: DUONEB (A & A) ONE (07:43)
[2019-11-08] MEDS: ALTACE PO SCH (08:43)
--- NOTE | 2019-11-08 11:03 | Diag Imaging Result Doc PS360 ---
US RENAL 2 (RETROPER) COMPLETE - 11/08/2019 INDICATION: ARIANNA TECHNIQUE: COMPARISON: CT from 01/29/2017 FINDINGS: There are couple small cysts in the right kidney measuring 1 cm. The left kidney is normal. There is no hydronephrosis. The right kidney measures 10.4 x 5.4 x 5.3 cm. The left kidney measures 12.3 x 4.9 x 5.1 cm. Urinary bladder is normal. There is splenomegaly. The spleen measures 12.8 x 5.1 cm. There are also some stable, benign splenic cysts. IMPRESSION: No acute process of the urinary tract. Splenomegaly. Electronically signed by Mickey Long 11/08/2019 11:01 AM
[2019-11-08 11:07] LABS: BASO# 0.07 X1000 (0.0-0.2); BASO% 0.6 % (0.0-0.8); EOS# 0.32 X1000 (0.0-0.7); EOS% 2.6 % (0.0-10.0); HEMATOCRIT 35.7 % (37.0-47.0); HEMOGLOBIN 11.7 g/dL (12.0-16.0); IMM GRAN# 0.08 X1000 (0.0-0.04); IMM GRAN% 0.7 % (0.0-0.5); LYMPH# 1.48 X1000 (1.2-3.4); LYMPH% 12.2 % (20.5-51.1); MCH 29.2 PG (27-31); MCHC 32.8 g/dL (33-37); MONO# 1.31 X1000 (0.11-0.59); MONO% 10.8 % (1.7-9.3); MPV 9.6 FL (7.4-10.4); NEUT# 8.86 X1000 (1.4-6.5); NEUT% 73.1 % (42.2-75.2); PLT 339 X1000 (130-400); RBC 4.01 XMIL (4.2-5.4); RDW 14.7 % (11.5-14.5); WBC 12.12 X1000 (4.8-10.8)
[2019-11-08] MEDS ORDERED: MISC. PHARMACY COMMUNICATION SCH (12:00)
[2019-11-08] MEDS ORDERED: TOBRAMYCIN IV PER PHARMACY MISC SCH (12:00)
[2019-11-08] MEDS: INCRUSE ELLIPTA INH SCH (13:00)
[2019-11-08] MEDS ORDERED: COLISTIN IV ONE (13:00)
[2019-11-08] MEDS ORDERED: NS IV ONE (13:00)
[2019-11-08] MEDS: TOBRAMYCIN MISC SCH ×3 (13:10→23:45)
--- NOTE | 2019-11-08 14:35 | PROGRESS NOTE ---
DATE: 11/08/2019 SUBJECTIVE: I have seen and examined Ms. Denise Alford today. Ms. Alford refers to be doing well, and the coughing has significantly improved. Ms. Alford is an 83-year-old female with a history of advanced COPD on home 2 oxygen, recurrent pseudomonal infection, who came in yesterday as a direct admit from her infectious disease physician's office after she was thought to have recurrence of Pseudomonas pneumonia. She just finished treatment I understand with meropenem, and they want her to be treated with tobramycin inhaler, as well as Polymyxin B IV. This morning Ms. Alford refers to be doing a little better. OBJECTIVE: Vital signs: Blood pressure is 137/69, pulse of 76, respiration is 18, temperature is 98.4 degrees. Patient is saturating 100% on 2 L. General: Ms. Alford is an 83-year-old elderly female. She is in bed. She is not in any cardiopulmonary distress. HEENT: Mucosa is pink and moist. Anicteric. Acyanotic. Neck: Supple. There is no JVD. Chest: Air entry is bilaterally reduced. There is prolonged expiratory phase of respiration. There is also diffuse bilateral expiratory wheezing and rhonchi. Cardiovascular: Regular rate and rhythm. GI/Abdomen: Soft, nontender. Extremities: No pedal edema. OTORHINOLARYNGOLOGIST: Patient is awake, alert, oriented. No focal deficit. LABORATORY DATA: Has been reviewed. WBC is 12.12, hemoglobin is 11.7, platelet count of 339. The patient's chemistry also has been reviewed. Creatinine is up to 3.3. Fractional excretion of BUN is 33% consistent with an intrarenal pathology. Renal ultrasound shows no acute process of the urinary tract. There is splenomegaly. ASSESSMENT: 1. Recurrent Pseudomonas pneumonia. The patient will be started on the recommended antimicrobial coverage from the Infectious Disease office. We will also reach out to the office on Sunday. 2. Acute kidney injury with fractional excretion of BUN 63, consistent with possible intrarenal disease. The patient was on medications with potential to make this worse, including ramipril and meloxicam, both of which have been discontinued. We are going to continue with the mild fluid, monitor the trajectory of the creatinine. If it does not show any improvement, we will involve our renal colleagues. 3. Severe advanced chronic obstructive pulmonary disease with bronchiectasis. 4. Hypertension, controlled. 5. Dyslipidemia. 6. History of abdominal aortic aneurysm. Patient is on statin. cc: Alfredo Reyes MD
[2019-11-09] MEDS: HEPARIN SUBQ SCH ×3 (00:14→17:53)
[2019-11-09] MEDS: MERREM 500 MG in NS 50 ML IV SCH ×2 (00:14→14:50)
[2019-11-09 07:39] LABS: BASO# 0.06 X1000 (0.0-0.2); BASO% 0.6 % (0.0-0.8); EOS# 0.29 X1000 (0.0-0.7); EOS% 2.8 % (0.0-10.0); HEMATOCRIT 32.5 % (37.0-47.0); HEMOGLOBIN 10.8 g/dL (12.0-16.0); IMM GRAN# 0.04 X1000 (0.0-0.04); IMM GRAN% 0.4 % (0.0-0.5); LYMPH# 0.66 X1000 (1.2-3.4); LYMPH% 6.3 % (20.5-51.1); MCH 29.2 PG (27-31); MCHC 33.2 g/dL (33-37); MCV 87.8 FL (81-99); MONO# 1.33 X1000 (0.11-0.59); MONO% 12.7 % (1.7-9.3); MPV 9.5 FL (7.4-10.4); NEUT# 8.09 X1000 (1.4-6.5); NEUT% 77.2 % (42.2-75.2); PLT 318 X1000 (130-400); RDW 14.5 % (11.5-14.5); WBC 10.47 X1000 (4.8-10.8)
[2019-11-09] MEDS: TOBRAMYCIN MISC SCH ×2 (07:53→19:30)
[2019-11-09] MEDS: INCRUSE ELLIPTA INH SCH (08:16)
[2019-11-09] MEDS: MUCOMYST 20% INH SCH (08:16)
[2019-11-09 08:31] LABS: ALBUMIN 3.1 g/dL (3.5-5.0); CALCIUM 9.2 mg/dL (8.8-10.2); CREATININE 4.3 mg/dL (0.5-0.9); PHOSPHORUS 5.5 mg/dL (2.7-4.5); POTASSIUM 4.6 mmol/L (3.5-5.1)
[2019-11-09] MEDS: MUCINEX PO SCH ×2 (08:47→20:38)
[2019-11-09] MEDS: ALTACE PO SCH (08:47)
[2019-11-09] MEDS ORDERED: DULCOLAX PR ONE (13:09)
--- NOTE | 2019-11-09 14:45 | PROGRESS NOTE ---
DATE: 11/09/2019 SUBJECTIVE: I have seen and examined Ms. Alford today. Ms. Alford refers to be doing well. Denies any new complaints. Early on, I was notified by the respiratory therapist that Ms. Alford has not been wanting to use the tobramycin inhalation therapy. After discussion with her, she says she would use it and that the reason she was not using it was because it was giving her a lot of cough. The patient has not had a bowel movement since admission. OBJECTIVE: Current Vital Signs: Blood pressure is 127/82, pulse of 72, respirations are 19, temperature is 98.5 degrees, patient is saturating 100% on 2 L. General Examination: Ms. Alford is an 83-year-old, elderly, female. She is in bed. No distress. HEENT: Mucosa is pink and moist. Anicteric. Acyanotic. Neck: Supple. Chest: Air entry is bilaterally reduced. There is diffuse expiratory rhonchi and wheezing. There is also a prolonged expiratory phase of respiration. Cardiovascular: Regular rate and rhythm. No murmurs. GI: Abdomen was soft, nontender. Bowel sounds were present. Extremities: No pedal edema. DECKHAND CRAB BOAT: The patient is awake, alert, and oriented. There is no focal deficit. Is and Os: Urine output was 200 documented. She seems to be positive balance. Laboratory Data: WBC is down to 10.47, hemoglobin is 10.8, platelet count of 318,000. Chemistry is also reviewed. Sodium is down to 130, bicarb is 18, BUN is up to 50, creatinine is 4.3. ASSESSMENT: 1. Severe advanced chronic obstructive pulmonary disease with bronchiectasis and chronic hypoxemia. 2. Acute on chronic hypoxemic respiratory failure. 3. Recurrent pseudomonal pneumonia. Patient continues to be on antimicrobial coverage. 4. Acute kidney failure. Creatinine continues to be worsening. We have discontinued the ramipril. We will also avoid any nephrotoxins. We will consult nephrology. 5. Hypertension, controlled. 6. Dyslipidemia. 7. History of aortic aneurysm. The patient is currently on statin. PLAN: In general, I think Ms. Alford seems to be doing well. We are going to put her on gentle IV fluids overnight. Continue with the current antimicrobial coverage which has been renally dosed. Unfortunately, her renal function continues to worsen. Her ultrasound did not show any obstructive uropathy. Ms. Alford was on ramipril and meloxicam at home, which have all been discontinued at this point. We will get nephrology to evaluate her tomorrow. cc: Alfredo Reyes MD
[2019-11-09] MEDS: NS 1,000 ML IV SCH (14:51)
[2019-11-09] MEDS: PRAVACHOL PO SCH (20:38)
[2019-11-10] MEDS: MERREM 500 MG in NS 50 ML IV SCH (00:28)
[2019-11-10] MEDS: HEPARIN SUBQ SCH ×3 (00:29→18:07)
[2019-11-10] MEDS ORDERED: COLISTIN IV SCH (02:00)
[2019-11-10] MEDS ORDERED: NS IV SCH (02:00)
[2019-11-10] MEDS: NS 1,000 ML IV SCH ×2 (02:23→05:04)
[2019-11-10 07:07] LABS: BASO# 0.06 X1000 (0.0-0.2); BASO% 0.6 % (0.0-0.8); EOS# 0.21 X1000 (0.0-0.7); EOS% 2.1 % (0.0-10.0); HEMATOCRIT 33.1 % (37.0-47.0); HEMOGLOBIN 10.8 g/dL (12.0-16.0); IMM GRAN# 0.05 X1000 (0.0-0.04); IMM GRAN% 0.5 % (0.0-0.5); LYMPH# 0.78 X1000 (1.2-3.4); LYMPH% 7.9 % (20.5-51.1); MCH 28.7 PG (27-31); MCHC 32.6 g/dL (33-37); MONO# 1.38 X1000 (0.11-0.59); MPV 9.6 FL (7.4-10.4); NEUT# 7.37 X1000 (1.4-6.5); NEUT% 74.9 % (42.2-75.2); PLT 315 X1000 (130-400); RBC 3.76 XMIL (4.2-5.4); RDW 14.7 % (11.5-14.5); WBC 9.85 X1000 (4.8-10.8)
[2019-11-10 07:39] LABS: ALBUMIN 2.7 g/dL (3.5-5.0); CALCIUM 8.9 mg/dL (8.8-10.2); CREATININE 4.6 mg/dL (0.5-0.9); PHOSPHORUS 6.2 mg/dL (2.7-4.5); POTASSIUM 4.4 mmol/L (3.5-5.1)
[2019-11-10] MEDS: TOBRAMYCIN MISC SCH ×3 (08:07→19:40)
[2019-11-10] MEDS: MUCOMYST 20% INH SCH ×2 (08:15→14:51)
[2019-11-10] MEDS: INCRUSE ELLIPTA INH SCH (08:16)
[2019-11-10] MEDS: MUCINEX PO SCH ×2 (08:34→21:09)
[2019-11-10] MEDS: MIRALAX PO SCH (08:34)
[2019-11-10] MEDS ORDERED: DUONEB (A & A) INH PRN (12:14)
--- NOTE | 2019-11-10 14:36 | PROGRESS NOTE ---
DATE: 11/10/2019 SUBJECTIVE: I have seen and examined Ms. Alford. Ms. Alford refers to be doing fair. Still coughing and bringing up some white expectoration and shortness of breath, but she said in general she feels slightly better. OBJECTIVE: Vital signs: Blood pressure 144/91, pulse of 78, respiration is 16, temperature is 98.0 degrees. General exam: Ms. Alford is an 83-year-old female. She is in bed, not seemingly distressed. HEENT: Mucosa is pink and moist. Anicteric. Acyanotic. Neck: Supple. Lungs: Air entry is bilaterally reduced. There is still some end expiratory wheezing and rhonchi. There is mildly prolonged expiratory phase of respiration. Cardiovascular: Regular rate and rhythm. No murmurs, no rubs, no gallops. GI/Abdomen: Soft, nontender. Bowel sounds present. Extremities: No pedal edema. CAN STRIPER: Patient is awake, alert, oriented. There is no focal deficit. LABORATORY DATA: WBC is normalized. Chemistry continues to show worsening of creatinine. ASSESSMENT: 1. Severe advanced chronic obstructive pulmonary disease with bronchiectasis and chronic hypoxemia. 2. Acute on chronic hypoxemic respiratory failure. 3. Recurrent Pseudomonas pneumonia. The patient I understand was on Colistin and tobramycin at home. However, her insurance will not cover for her tobramycin, and when she went for follow- up, she did have some renal issues. She was electively admitted for tobramycin inhalation therapy. 4. Acute kidney injury, most likely due to drug- induced nephrotoxicity, presumably Cholestin. This has been withheld. Nephrology has been consulted. 5. Hypertension, controlled. 6. Dyslipidemia. PLAN: So, in general, Ms. Alford continues to be symptomatic. She was electively admitted from Dr. Boothe' office after she was found to have renal failure on 3 day course of Colistin at home. This medication has been discontinued since today. She is currently just on tobramycin inhalation, which also has potential to be absorbed systemically and cause some renal impairment. We have consulted Pulmonary Medicine to evaluate her as well. Ms. Alford has had recurrent Pseudomonas pneumonia and she is currently resistant, even to the carbapenems. Hopefully, Pulmonary Medicine can give us some guidance on her management at this point. Unfortunately, we do not have ID coverage at this point. cc: Alfredo Reyes MD [facility]
[2019-11-10] MEDS: DUONEB (A & A) INH SCH ×3 (14:51→23:40)
--- NOTE | 2019-11-10 15:05 | Diag Imaging Result Doc PS360 ---
EXAM: US RENAL 2 (RETROPER) COMPLETE 11/10/2019 HISTORY: melvin/arf TECHNIQUE: Renal ultrasound COMMENT: The right kidney is 10.3 x 5.7 x 4.6 cm the left is 11.9 x 5.6 x 5.2 cm. There are multiple cysts in the spleen the largest measuring 3.1 cm. The bladder volume is measured at 242.5 mL. There is no evidence of hydronephrosis or masses. IMPRESSION: No evidence of obstructive uropathy. Electronically signed by Martir Fuchs 11/10/2019 3:02 PM
--- NOTE | 2019-11-10 16:39 | Diag Imaging Result Doc PS360 ---
EXAM: CHEST-2 VIEWS 11/10/2019 HISTORY: bronchiectasis TECHNIQUE: Two views the chest COMMENT: the appearance the chest has not changed significantly since 11/07/2019. Compared to 10/01/2019 there has been no significant change. IMPRESSION: Stable chest. Electronically signed by Martir Fuchs 11/10/2019 4:36 PM
--- NOTE | 2019-11-10 17:47 | NEPHROLOGY CONSULTATION ---
DATE: 11/10/2019 REASON FOR CONSULTATION: Acute kidney injury. HISTORY OF PRESENT ILLNESS: Ms. Alford is an 83-year-old white female who was admitted to the hospital after a fall. She states that she fell on . She became weak and dizzy and fell. Did not trip, did not lose consciousness. She was not brought immediately to the hospital according to her. She was in fact admitted the following day. Her status did not improve and her son became concerned that she might have pneumonia. She was assessed in the emergency room in the afternoon on the at which time, her white count was elevated at 20,000 and temperature was normal. Initial creatinine at that time was 2.5. She was admitted to the hospital and treated with IV fluid resuscitation such that she is now positive approximately 4 L. Urine output has been 200 to 600 mL, but nothing is recorded for the last 24 hours. Voids are not measured. Her creatinine has continued to rise and is 4.6 today. We were asked to see her to assist. She did not have hypotension. She has not received IV contrast. No recent baseline creatinine in the computer but her creatinine was 0.6 on October 27 of this year. HOME MEDICATIONS: Include pravastatin, ramipril, meloxicam, guaifenesin, multivitamin, N-acetyl cysteine, azelastine, Incruse, Amoxil. ALLERGIES: Hydrocodone. SOCIAL HISTORY: History of heavy tobacco use. History of lung cancer. Family history and review of systems otherwise noncontributory. PHYSICAL EXAMINATION: Vital Signs: Blood pressure 143/52, heart rate 73, respirations 14, afebrile. General: She is a frail, elderly woman in no acute distress. Skin: Warm and dry. Few bruises, thinning. Conjunctivae are pink. Pupils are equal. Oropharynx is clear. Neck: Neck veins are not distended. Trachea is midline. PMI is difficult to palpate. Heart: Regular. No gallops or murmurs are audible. Lungs: Equal with diffuse wheezes and few crackles. Abdomen: Soft, nontender. Bowel sounds are present. Extremities: With trace edema. No clubbing or cyanosis. IMPRESSION: Acute kidney injury. Likely ischemic acute tubular necrosis. I will check a CK to rule out rhabdomyolysis. At this point however, her CK may be back to normal. She does have a moderate metabolic acidosis but other electrolytes are in target and she appears euvolemic. We will follow with strict I's and O's. I have reviewed her medication list. No changes are required at this time. cc: Frank Arreola MD
[2019-11-10] MEDS: PRAVACHOL PO SCH (21:10)
--- NOTE | 2019-11-10 22:08 | PULMONOLOGY CONSULTATION ---
DATE: 11/10/2019 REQUESTING CLINICIAN: Alfredo Reyes MD REASON FOR CONSULTATION: Recurrent pseudomonal pneumonia. HISTORY OF PRESENT ILLNESS: Ms. Alford is an 83-year-old female who has been followed in my clinic for many years. The patient underwent a left upper lobectomy for lung cancer in 2011. The patient has had difficulty with ongoing recurrent pneumonia/exacerbations of bronchiectasis. Other complications have included a fungal pneumonia requiring Vfend along with recurrent exacerbation of bronchiectasis. The patient recently had an exacerbation and reports she has been on meropenem along with inhaled tobramycin. She presented to the emergency room after falling. She was in acute renal failure, and her creatinine continues to climb. She reports generalized weakness. She has a cough but is not producing significant sputum. She does report generalized fatigue and weakness. PAST MEDICAL HISTORY: 1. Severe COPD. 2. Status post left upper lobectomy. 3. Bronchiectasis with multiple antibiotic regimens. 4. Status post hip replacements. 5. Status post cholecystectomy. SOCIAL HISTORY: She is a . Prior tobacco use. She is retired. FAMILY HISTORY: Positive for pancreatic cancer and coronary artery disease. REVIEW OF SYSTEMS: Reveals a frail chronically ill-appearing white female. She has a relatively good cough. PHYSICAL EXAMINATION: Vital Signs: BP 142/52, heart rate 73, respiratory rate 14, oxygen saturation 95% on 2 L per nasal cannula. HEENT: Pupils are equal. Oropharynx appears clear. Neck: Supple. Chest: Reveals rhonchi bilaterally. Cardiac exam: S1, S2. Abdomen: Soft. Extremities: Without edema. LABORATORIES: White blood count 9.85, hemoglobin 10.8, platelet count 315,000. Sodium 132, potassium 4.4, chloride 98, bicarbonate 14, anion gap 20, BUN 59, creatinine 4.6. IMPRESSION: An 83-year-old with: 1. Severe chronic obstructive pulmonary disease. 2. Hypoxemic respiratory failure. 3. Bronchiectasis. Current chest x-ray appears to be near her baseline and is unchanged from 10/01/2019 4. Protein calorie malnutrition. DISCUSSION: An 83-year-old with problems outlined above. The patient now has acute renal failure. RECOMMENDATIONS: 1. Would discontinue all possible nephrotoxic agents including tobramycin. She will absorb some tobramycin and may have difficulty clearing it, especially on 600 mg per day. 2. Avoid nonsteroidals as you are doing. 3. Continue acetylcysteine and bronchodilators. 4. Prognosis is guarded with acute renal failure. cc: Germán Mack MD
[2019-11-11] MEDS: HEPARIN SUBQ SCH ×3 (00:18→17:47)
[2019-11-11] MEDS: DUONEB (A & A) INH SCH ×6 (03:21→23:35)
[2019-11-11 07:04] LABS: BASO# 0.03 X1000 (0.0-0.2); BASO% 0.3 % (0.0-0.8); EOS# 0.29 X1000 (0.0-0.7); EOS% 2.8 % (0.0-10.0); HEMOGLOBIN 11.2 g/dL (12.0-16.0); IMM GRAN# 0.03 X1000 (0.0-0.04); IMM GRAN% 0.3 % (0.0-0.5); LYMPH# 0.92 X1000 (1.2-3.4); MCH 29.2 PG (27-31); MCHC 33.9 g/dL (33-37); MCV 86.2 FL (81-99); MONO# 1.46 X1000 (0.11-0.59); MONO% 14.2 % (1.7-9.3); MPV 9.5 FL (7.4-10.4); NEUT# 7.54 X1000 (1.4-6.5); NEUT% 73.4 % (42.2-75.2); PLT 319 X1000 (130-400); RBC 3.83 XMIL (4.2-5.4); RDW 14.4 % (11.5-14.5); WBC 10.27 X1000 (4.8-10.8)
[2019-11-11] MEDS: MUCOMYST 20% INH SCH (07:28)
[2019-11-11] MEDS: INCRUSE ELLIPTA INH SCH (07:28)
[2019-11-11 07:33] LABS: CALCIUM 8.8 mg/dL (8.8-10.2); CREATININE 4.9 mg/dL (0.5-0.9); PHOSPHORUS 6.1 mg/dL (2.7-4.5); POTASSIUM 4.1 mmol/L (3.5-5.1)
[2019-11-11] MEDS: MUCINEX PO SCH ×2 (09:08→20:36)
[2019-11-11] MEDS: MIRALAX PO SCH (09:08)
--- NOTE | 2019-11-11 15:47 | NEPHROLOGY PROGRESS NOTE ---
DATE: 11/11/2019 SUBJECTIVE: She is about the same. Remains weak and tired. No new complaints. OBJECTIVE: Vital Signs: Blood pressure 148/51, heart rate 83, respirations 18, temperature 99.3 degrees. Intake and output are incompletely recorded. General: In no acute distress. Skin: Warm and dry. Neck: Neck veins are not appreciated. Heart: Regular. Lungs: Equal with diffuse wheezing. Abdomen: Soft, nontender. Bowel sounds present. Extremities: No edema, clubbing or cyanosis. IMPRESSION: Acute kidney injury, likely acute tubular necrosis. Most likely, mechanism is ischemic acute tubular necrosis (ATN), though she did receive inhaled tobramycin. Her tobramycin level was quite low yesterday evening. Urine output is acceptable. Volume status is acceptable. No changes. cc: Frank Arreola MD
[2019-11-11] MEDS: TYLENOL PO PRN (15:49)
[2019-11-11 18:40] LABS: UR CREAT RANDOM 45.5 mg/dL (11-20); UR PROT RANDOM 23.8 mg/dL
--- NOTE | 2019-11-11 18:40 | PROGRESS NOTE ---
DATE: 11/11/2019 SUBJECTIVE: Patient looks okay. She is not working hard to breathe. OBJECTIVE: Vital signs: Blood pressure 157 over 60s, heart rate 92, respiratory rate 14, temperature 98.2 degrees, 99 percent on 2 L. Cardiovascular: Regular rate and rhythm. Pulmonary: Bilateral breath sounds, clear to auscultation. GI: Soft, nontender, nondistended. Bowel sounds are positive. LABORATORY DATA: White count 10, hemoglobin and hematocrit 11 and 33, platelets 319,000. Creatinine is up to 4.9. PROBLEM LIST: 1. Acute kidney injury, which possibly is due to antibiotics versus dehydration. Her urine electrolytes were more consistent with prerenal causes. I guess they checked the urine urea. I am going to check a urine sodium. She is not on diuretics, but most likely this is acute tubular necrosis. She has been on Tobramycin and Colistin for a pseudomonal infection, so we will continue to follow. 2. Pseudomonal pneumonia. At this point, I do not think we are actively treating it. Dr. Mack has been consulted and is following the patient. She was on 600 mg of Tobramycin a day. That seems like a large dose, so we will continue to follow. At this point, it is not clear if has no active infection. 3. Disposition. Pending clinical status, at this point again her kidney function is still not completely there. We are going to continue to monitor. She is not getting hydration at this point, although I am not really sure if it will help at this point. We will continue to follow. cc: Felix Quintanilla MD
--- NOTE | 2019-11-11 19:03 | PULMONOLOGY PROGRESS NOTE ---
DATE: 11/11/2019 SUBJECTIVE: The patient is awake and alert. She has a slightly wet cough. Nursing staff reports that she has been reluctant to get out of bed. OBJECTIVE: Vital Signs: The patient has been afebrile for the last 24 hours. Blood pressure 148/51, heart rate 88, respiratory rate 18, oxygen saturation 99% on nasal cannula. HEENT: Pupils are equal and reactive. Oropharynx appears clear. Neck: Supple. Chest: Reveals occasional rhonchi. Cardiac: S1-S2. Abdomen: Soft. Extremities: Without edema. LABORATORIES: White blood count 10.27, hemoglobin 11.2, platelet count 319,000. Sodium 135, potassium 4.1, chloride 100, bicarbonate 19, BUN 60, creatinine 4.9, glucose 125. IMPRESSION: An 83-year-old with 1. Chronic bronchiectasis. 2. Severe chronic obstructive pulmonary disease. 3. History of lung cancer. 4. Protein calorie malnutrition. 5. Acute renal failure. DISCUSSION: An 83-year-old with problems outlined above. The patient's acute renal failure is quite concerning. She currently has been reluctant to get out of bed because she does not feel well. It is imperative that she get out of bed, deep breathe, cough and ambulate or she will not likely survive. PLAN: 1. Encourage patient to get out of bed. 2. Encourage use of bronchodilators. 3. Guarded prognosis. cc: Germán Mack MD
[2019-11-11] MEDS: PRAVACHOL PO SCH (20:36)
[2019-11-12] MEDS: HEPARIN SUBQ SCH ×3 (03:13→16:48)
[2019-11-12] MEDS: DUONEB (A & A) INH SCH ×6 (03:21→23:37)
[2019-11-12 07:02] LABS: BASO# 0.01 X1000 (0.0-0.2); BASO% 0.1 % (0.0-0.8); EOS# 0.04 X1000 (0.0-0.7); EOS% 0.4 % (0.0-10.0); HEMATOCRIT 32.3 % (37.0-47.0); HEMOGLOBIN 11.1 g/dL (12.0-16.0); IMM GRAN# 0.04 X1000 (0.0-0.04); IMM GRAN% 0.4 % (0.0-0.5); LYMPH# 0.59 X1000 (1.2-3.4); LYMPH% 5.7 % (20.5-51.1); MCHC 34.4 g/dL (33-37); MCV 84.3 FL (81-99); MONO# 1.48 X1000 (0.11-0.59); MONO% 14.4 % (1.7-9.3); MPV 9.6 FL (7.4-10.4); NEUT# 8.15 X1000 (1.4-6.5); PLT 346 X1000 (130-400); RBC 3.83 XMIL (4.2-5.4); RDW 14.1 % (11.5-14.5); WBC 10.31 X1000 (4.8-10.8)
[2019-11-12] MEDS: MUCOMYST 20% INH SCH (07:24)
[2019-11-12 07:25] LABS: ALBUMIN 2.9 g/dL (3.5-5.0); CALCIUM 8.8 mg/dL (8.8-10.2); CREATININE 4.7 mg/dL (0.5-0.9); PHOSPHORUS 6.7 mg/dL (2.7-4.5); POTASSIUM 3.7 mmol/L (3.5-5.1)
[2019-11-12] MEDS: INCRUSE ELLIPTA INH SCH (07:26)
[2019-11-12] MEDS: TYLENOL PO PRN ×2 (08:36→22:05)
[2019-11-12] MEDS: MUCINEX PO SCH ×2 (08:36→20:31)
[2019-11-12] MEDS: MIRALAX PO SCH (08:36)
--- NOTE | 2019-11-12 13:06 | NEPHROLOGY PROGRESS NOTE ---
DATE: 11/12/2019 SUBJECTIVE: Ms Alford is sitting up in a chair, eating a little better. No nausea. OBJECTIVE: Vital Signs: Blood pressure 144/62, heart rate 89, respirations 17, afebrile. No acute distress. IMPRESSION/PLAN: Acute kidney injury. Creatinine seems to have plateaued over the last 48 hours. Good urine output. Electrolytes and acid-base are acceptable, though not in target. Advance diet. Increase p.o. intake. We discussed this. Observe. cc: Frank Arreola MD
--- NOTE | 2019-11-12 16:10 | PROGRESS NOTE ---
DATE: 11/12/2019 SUBJECTIVE: The patient has no major complaints. OBJECTIVE: Blood pressure 144/62, heart rate of 89, respiratory rate of 17, temperature 97.9 degrees, 93% on 2 L.Cardiovascular: Regular rate and rhythm. Pulmonary: Bilateral breath sounds clear to auscultation. GI: Soft, nontender, nondistended. Bowel sounds are positive. White count 10, hemoglobin and hematocrit 11 and 32, platelets 346,000. BUN and creatinine 62 and 4.7. PROBLEM LIST: 1. Acute kidney injury due to possible antibiotic. She has been on tobramycin and colistin. Her kidney function has stabilized. It has not really gotten any worse. Seems to be doing okay from that standpoint so in any case, we will continue to follow. I do not think she is getting any other fluids. I contemplated giving her some sodium bicarbonate, but I do not think we ended up doing that. She has a mild acidosis, but it is improved and I think her kidney function, her creatinine is down to 4.7, so it has definitely plateaued. 2. Chronic obstructive pulmonary disease with history of pseudomonal pneumonia, not currently on antibiotics and not currently sick as far as requiring antibiotics. She has bronchiectasis, so we are going to continue to monitor. DISPOSITION: We will continue to follow. I think it looks like we are aiming for rehab, which may be able to be completed soon. cc: Felix Quintanilla MD
[2019-11-12] MEDS: PRAVACHOL PO SCH (20:31)
--- NOTE | 2019-11-12 21:49 | PULMONOLOGY PROGRESS NOTE ---
DATE: 11/12/2019 SUBJECTIVE: The patient is awake and alert. She reports she did get out of bed today. She has limited appetite. She has a fair cough effort. OBJECTIVE: Vital Signs: The patient has been afebrile for the last 24 hours. BP 148/76, heart rate 82, respiratory rate 18, oxygen saturation 97%. HEENT: Pupils are equal and reactive. Oropharynx appears clear. Neck: Supple. Chest: Reveals occasional rhonchi bilaterally. Cardiac exam: S1, S2. Abdomen: Soft. Extremities: Without edema. LABORATORY DATA: White blood count 10.31, hemoglobin 11.1, platelet count 346,000, sodium 132, potassium 3.7, chloride 97, bicarbonate 18, BUN 62, creatinine 4.7. IMPRESSION: An 83-year-old with: 1. Chronic bronchiectasis. 2. Severe chronic obstructive pulmonary disease. 3. Acute renal failure. 4. Protein calorie malnutrition. 5. History of lung cancer. PLAN: 1. Continue bronchial hygiene. 2. Encourage mobilization of the patient. She did get out of bed today. 3. Avoid nephrotoxic drugs. cc: Germán Mack MD
[2019-11-13] MEDS: HEPARIN SUBQ SCH ×3 (03:08→17:22)
[2019-11-13] MEDS: DUONEB (A & A) INH SCH ×6 (03:38→23:17)
[2019-11-13] MEDS: TYLENOL PO PRN ×3 (06:09→22:11)
[2019-11-13] MEDS: MUCOMYST 20% INH SCH (07:24)
[2019-11-13 07:49] LABS: BASO# 0.03 X1000 (0.0-0.2); BASO% 0.4 % (0.0-0.8); EOS% 1.2 % (0.0-10.0); HEMATOCRIT 31.8 % (37.0-47.0); HEMOGLOBIN 10.9 g/dL (12.0-16.0); IMM GRAN# 0.04 X1000 (0.0-0.04); IMM GRAN% 0.5 % (0.0-0.5); LYMPH# 0.81 X1000 (1.2-3.4); LYMPH% 9.7 % (20.5-51.1); MCHC 34.3 g/dL (33-37); MCV 84.6 FL (81-99); MONO# 1.33 X1000 (0.11-0.59); MPV 9.7 FL (7.4-10.4); NEUT% 72.2 % (42.2-75.2); PLT 367 X1000 (130-400); RBC 3.76 XMIL (4.2-5.4); RDW 14.1 % (11.5-14.5); WBC 8.31 X1000 (4.8-10.8)
[2019-11-13 08:07] LABS: ALBUMIN 2.9 g/dL (3.5-5.0); CALCIUM 9.7 mg/dL (8.8-10.2); CREATININE 4.2 mg/dL (0.5-0.9); PHOSPHORUS 6.9 mg/dL (2.7-4.5); POTASSIUM 3.4 mmol/L (3.5-5.1)
--- NOTE | 2019-11-13 09:37 | NEPHROLOGY PROGRESS NOTE ---
DATE: 11/13/2019 SUBJECTIVE: She states today is not quite as good as it was yesterday. She still has good urine output. She is drinking plenty. She did not eat much of her breakfast. Shortness of breath. OBJECTIVE: Vital Signs: Blood pressure 84/54, heart rate 79, respirations 18, afebrile. Intake and output are incomplete. General: No acute distress. Skin: Warm and dry. Neck: Neck veins are not distended. HEENT: Oropharynx is dry. Heart: Regular. No gallop. Lungs: Equal. No crackles or wheezes. Abdomen: Soft and nontender. Bowel sounds are present. Extremities: No edema, clubbing, or cyanosis. IMPRESSION: 1. Acute kidney injury. Creatinine is 4.2 today with a BUN of 65. She has experienced modest improvement over the last 48 hours. Presumably, ischemic acute tubular necrosis. Electrolytes/acid-base acceptable. 2. Anemia, on target. 3. Blood pressure is low today but typically within target. Et cetera. cc: Frank Arreola MD
[2019-11-13] MEDS: MUCINEX PO SCH ×2 (09:52→22:11)
[2019-11-13] MEDS: MIRALAX PO SCH (09:52)
[2019-11-13] MEDS: INCRUSE ELLIPTA INH SCH (11:33)
--- NOTE | 2019-11-13 14:22 | PROGRESS NOTE ---
DATE: 11/13/2019 SUBJECTIVE: Ms. Alford was admitted on 11/08/2019. Her doctor used to be Dr. Joseph. Unable to pee for 1 day duration. An 83-year-old female with history of COPD with chronic bronchiectasis, abdominal aortic aneurysm, hypertension, hyperlipidemia, history of left upper lobe lung cancer status post lobectomy, history of recurrent readmissions for Pseudomonas pneumonia presented with difficulty with urination for 1 day. ADMISSION DIAGNOSES: Admitted to the hospital with admission diagnosis of: 1. Acute kidney injury. 2. Pseudomonas pneumonia with positive Pseudomonas infection in the sputum. 3. Hyponatremia. 4. 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 5. COPD and bronchiectasis status post left lobectomy and upper lobectomy. 6. Hypertension. 7. Hyperlipidemia. 8. History of abdominal aortic aneurysm. She has had surgery on that. PHYSICAL EXAMINATION: On exam today she feels better. Breathing is better. Vital Signs: Temperature 99.7 degrees, pulse 79, respirations 18, and blood pressure 184/54. HEENT: Pupils are equal and round. Lungs: Clear in all lung muir. Cardiovascular: Regular rhythm and rate without murmur or S3. LABORATORY: Blood sugar 133, 146 and 128. ASSESSMENT AND PLAN: 1. Acute kidney injury. Creatinine 4.2, BUN of 65, and experienced some improvement over the last 48 hours. 2. Anemia is on target. 3. Blood pressures have been a little low but fairly stable. 4. Chronic bronchiectasis. Severe chronic obstructive pulmonary disease. Continue bronchial hygiene. Encourage mobilization. We will begin occupational therapy and physical therapy. I think they are discussing it. At this point, she does not really want to go to rehab. cc: Feng Ramirez MD
[2019-11-13] MEDS: PRAVACHOL PO SCH (22:11)
--- NOTE | 2019-11-14 01:37 | PULMONOLOGY PROGRESS NOTE ---
DATE: 11/13/2019 SUBJECTIVE: The patient is awake and alert. She reports that she sat in a chair about 2 hours today. She reports her appetite is improving. OBJECTIVE: Vital Signs: Blood pressure 140/58, heart rate 83 respiratory rate 23, oxygen saturation 100% 2 L per nasal cannula. HEENT: Pupils are equal and reactive. Oropharynx appears clear. Neck: Supple. Chest: Reveals occasional rhonchi without wheezing. Cardiac: S1-S2. Abdomen: Soft. Extremities: Without edema. LABORATORIES: White blood count 8.3, hemoglobin 10.9, platelet count 367,000. Sodium 135, potassium 3.4, chloride 99, bicarbonate 30, BUN 65, creatinine 4.2. IMPRESSION: An 83-year-old with: 1. Chronic bronchiectasis. 2. Severe chronic obstructive pulmonary disease. 3. Acute renal failure. 4. Protein calorie malnutrition with improving appetite. 5. History of lung cancer. DISCUSSION: An 83-year-old with problems outlined above. Her kidney function appears to be plateauing. PLAN: 1. Continue bronchial hygiene. 2. Continue to mobilize as tolerated. 3. Avoid nephrotoxic drugs. cc: Germán Mack MD
[2019-11-14] MEDS: HEPARIN SUBQ SCH ×3 (02:01→17:33)
[2019-11-14] MEDS: DUONEB (A & A) INH SCH ×6 (06:44→22:57)
[2019-11-14 07:13] LABS: BASO# 0.05 X1000 (0.0-0.2); BASO% 0.6 % (0.0-0.8); EOS# 0.17 X1000 (0.0-0.7); HEMATOCRIT 33.3 % (37.0-47.0); HEMOGLOBIN 11.3 g/dL (12.0-16.0); IMM GRAN# 0.03 X1000 (0.0-0.04); IMM GRAN% 0.4 % (0.0-0.5); LYMPH# 1.05 X1000 (1.2-3.4); LYMPH% 12.6 % (20.5-51.1); MCHC 33.9 g/dL (33-37); MCV 85.6 FL (81-99); MONO# 1.14 X1000 (0.11-0.59); MONO% 13.7 % (1.7-9.3); MPV 9.6 FL (7.4-10.4); NEUT# 5.88 X1000 (1.4-6.5); NEUT% 70.7 % (42.2-75.2); PLT 421 X1000 (130-400); RBC 3.89 XMIL (4.2-5.4); RDW 14.2 % (11.5-14.5); WBC 8.32 X1000 (4.8-10.8)
[2019-11-14] MEDS: MUCOMYST 20% INH SCH (07:25)
[2019-11-14] MEDS: INCRUSE ELLIPTA INH SCH (07:27)
[2019-11-14 07:31] LABS: CALCIUM 9.4 mg/dL (8.8-10.2); CREATININE 3.9 mg/dL (0.5-0.9); PHOSPHORUS 6.4 mg/dL (2.7-4.5); POTASSIUM 3.8 mmol/L (3.5-5.1)
[2019-11-14] MEDS: MIRALAX PO SCH (08:50)
[2019-11-14] MEDS: MUCINEX PO SCH ×2 (08:50→20:49)
[2019-11-14] MEDS: TYLENOL PO PRN (09:02)
--- NOTE | 2019-11-14 12:26 | PROGRESS NOTE ---
DATE: 11/14/2019 SUBJECTIVE: Ms. Alford is breathing better. She is very weak, says she is going to have to be able to walk a little bit before she can go home. She lives alone. She does have oxygen at home already. OBJECTIVE: Vital signs: Temperature 97.6 degrees, pulse 80, respirations 19, blood pressure 128/59. HEENT: Pupils are equal and round. Lungs: Lungs are clear in all lung muir. Cardiovascular: Regular rate without murmur or S3. DIAGNOSTIC DATA: Blood sugars 146, 117, 111, 187. ASSESSMENT AND PLAN: 1. Chronic bronchiectasis, severe chronic obstructive pulmonary disease and improving, air and gas exchange improving. 2. Acute renal failure which is improved. Her creatinine is 3.9. When she came in, it was 2.5 and it went up to 4.9, so I think her baseline is probably 2.5. 3. IgA deficiency workup in the past. 4. Presented with hyponatremia and this is improved. Sodium is 134. 5. Hypertension. 6. Hyperlipidemia. 7. History of abdominal aortic aneurysm with repair. 8. So, she is getting physical therapy and occupational therapy. 9. On review of her orders, she is on Pravachol 40 mg a day, DuoNeb q.4 hours, getting Azelastine spray 2 puffs each nostril twice a day, guaifenesin ER 600 mg b.i.d., and heparin 5000 units subcu q.8 hours, MiraLAX 17 g daily, umeclidinium bromide 1 puff daily. REVIEW OF LABS: Sodium 134, potassium 4.2, chloride 102, BUN 41, creatinine 3.3. cc: Feng Ramirez MD
--- NOTE | 2019-11-14 12:40 | NEPHROLOGY PROGRESS NOTE ---
DATE: 11/14/2019 SUBJECTIVE: She is complaining a bit that she has had some myalgias and arthralgias. She attributes this to physical therapy. She states she had some trouble getting Tylenol from staff. OBJECTIVE: Vital Signs: Blood pressure 133/49, heart rate 77, respirations 16. Afebrile. General: No acute distress. Skin: Warm and dry. Neck: Neck veins are not distended. Heart: Regular with S4. Lungs: Equal. Clear. No wheezes today. Abdomen: Soft, nontender. Bowel sounds present. Extremities: No edema, clubbing or cyanosis. IMPRESSION: 1. Acute kidney injury. Creatinine 3.9 today. Very slow improvement, but still trending toward improvement. 2. Electrolytes, acid base, volume status: All acceptable. No changes. cc: Frank Arreola MD
--- NOTE | 2019-11-14 19:02 | PULMONOLOGY PROGRESS NOTE ---
DATE: 11/14/2019 SUBJECTIVE: The patient is awake, alert, and conversant. She reports she has not gotten out of bed today. Her breathing is doing well. She denies sputum production. OBJECTIVE: Vital Signs: The patient has been afebrile for the last 24 hours. Blood pressure 128/59, heart rate 80, respiratory rate 19, oxygen saturation 100%. HEENT: Pupils are equal and reactive. Oropharynx appears clear. neck: Neck is supple. pulmonary: Chest reveals occasional crackles and rhonchi without wheezing. Cardiac: S1-S2. abdomen: Abdomen is soft. Extremities: Without edema. LABORATORIES: White blood count 8.32, hemoglobin 11.3, platelet count 421,000. Sodium 139, potassium 3.8, chloride 102, BUN 67, creatinine 3.9. IMPRESSION: An 83-year-old with: 1. Chronic bronchiectasis. 2. Severe chronic obstructive pulmonary disease. 3. Remote history of lung cancer. 4. Acute renal failure with improvement. 5. Protein calorie malnutrition. PLAN: 1. Continue bronchial hygiene. 2. Continue to mobilize the patient as tolerated. 3. Continue to avoid nephrotoxic drugs. cc: Germán Mack MD
[2019-11-14] MEDS: ZOSTRIX TOP SCH (20:49)
[2019-11-14] MEDS: PRAVACHOL PO SCH (20:49)
[2019-11-14] MEDS: ATIVAN PO PRN (20:51)
[2019-11-15] MEDS: HEPARIN SUBQ SCH ×3 (02:25→17:45)
[2019-11-15] MEDS: DUONEB (A & A) INH SCH ×6 (04:03→23:37)
[2019-11-15 06:28] LABS: BASO# 0.16 X1000 (0.0-0.2); EOS# 0.18 X1000 (0.0-0.7); EOS% 2.2 % (0.0-10.0); HEMATOCRIT 33.7 % (37.0-47.0); HEMOGLOBIN 11.3 g/dL (12.0-16.0); IMM GRAN# 0.04 X1000 (0.0-0.04); IMM GRAN% 0.5 % (0.0-0.5); LYMPH# 1.29 X1000 (1.2-3.4); LYMPH% 15.9 % (20.5-51.1); MCH 29.1 PG (27-31); MCHC 33.5 g/dL (33-37); MCV 86.9 FL (81-99); MONO# 1.01 X1000 (0.11-0.59); MONO% 12.5 % (1.7-9.3); MPV 9.4 FL (7.4-10.4); NEUT# 5.41 X1000 (1.4-6.5); NEUT% 66.9 % (42.2-75.2); PLT 450 X1000 (130-400); RBC 3.88 XMIL (4.2-5.4); RDW 14.3 % (11.5-14.5); WBC 8.09 X1000 (4.8-10.8)
[2019-11-15 06:51] LABS: ALBUMIN 2.7 g/dL (3.5-5.0); CALCIUM 9.4 mg/dL (8.8-10.2); CREATININE 3.5 mg/dL (0.5-0.9); PHOSPHORUS 5.7 mg/dL (2.7-4.5)
[2019-11-15] MEDS: ZOSTRIX TOP SCH ×4 (08:54→20:36)
[2019-11-15] MEDS: MIRALAX PO SCH (08:54)
[2019-11-15] MEDS: MUCINEX PO SCH ×2 (08:55→20:35)
[2019-11-15] MEDS: TYLENOL PO PRN ×2 (09:00→17:44)
[2019-11-15] MEDS: INCRUSE ELLIPTA INH SCH (09:02)
[2019-11-15] MEDS: MUCOMYST 20% INH SCH (09:07)
--- NOTE | 2019-11-15 09:38 | PROGRESS NOTE ---
DATE: 11/15/2019 SUBJECTIVE: Ms. Alford is stronger. She does feel better. She is not able to walk yet. Still concerned about weakness. Her breathing is much better. She remains afebrile. OBJECTIVE: Vital Signs: Temperature 97.4 degrees, pulse 80, respirations 20, blood pressure 132/57. Eyes: Pupils are equal and round. Lungs: Lungs are clear in all lung muir. Cardiovascular exam: Regular rhythm and rate without murmur or S3. Abdomen: Abdomen is soft. Skin: Skin is warm and dry. : Urine output is unrecorded. Blood sugar 117, 111, 151, 157. ASSESSMENT AND PLAN: 1. Chronic bronchiectasis. 2. Severe chronic obstructive pulmonary disease. 3. Remote history of lung cancer. 4. Acute renal failure with improvement when she presented with renal acute kidney injury. This is improved. 5. Protein calorie malnutrition. She is eating much better. Her acute kidney injury creatinine is down to 3.5, so that is still slowly improving. Continue physical therapy. Continue present orders. Her hope is to go home I guess with home health. cc: Feng Ramirez MD
--- NOTE | 2019-11-15 15:03 | PULMONOLOGY PROGRESS NOTE ---
DATE: 11/15/2019 SUBJECTIVE: The patient is awake and alert. She is without specific complaints. OBJECTIVE: Vital Signs: The patient has been afebrile for the last 24 hours. Blood pressure 141/48, heart rate 80, respiratory rate 16, oxygen saturation 93%. HEENT: Pupils are equal and reactive. Oropharynx appears clear. neck: Neck is supple. pulmonary: Chest reveals occasional rhonchi bilaterally. Cardiac: S1-S2. abdomen: Abdomen is soft. Extremities: Extremities are without edema. LABORATORIES: White blood count 8.09, hemoglobin 11.3, platelet count 450,000. Sodium 136, potassium 4.0, chloride 100, bicarbonate 21, BUN 64, creatinine 3.5. IMPRESSION: An 83-year-old with: 1. Chronic bronchiectasis. 2. Severe chronic obstructive pulmonary disease. 3. History of lung cancer. 4. Acute renal failure with continued improvement. PLAN: 1. Continue bronchial hygiene. 2. From a pulmonary standpoint, the patient can be discharged home. 3. Anticipate the need for discharge to inpatient rehab or home with rehab. cc: Germán Mack MD
[2019-11-15] MEDS: PRAVACHOL PO SCH (20:35)
[2019-11-15] MEDS: ATIVAN PO PRN (20:35)
[2019-11-16] MEDS: HEPARIN SUBQ SCH ×3 (01:46→16:32)
[2019-11-16] MEDS: DUONEB (A & A) INH SCH ×6 (03:20→23:04)
[2019-11-16 06:53] LABS: BASO# 0.14 X1000 (0.0-0.2); BASO% 1.7 % (0.0-0.8); EOS# 0.23 X1000 (0.0-0.7); EOS% 2.7 % (0.0-10.0); HEMATOCRIT 32.4 % (37.0-47.0); HEMOGLOBIN 10.8 g/dL (12.0-16.0); IMM GRAN# 0.04 X1000 (0.0-0.04); IMM GRAN% 0.5 % (0.0-0.5); LYMPH# 1.22 X1000 (1.2-3.4); LYMPH% 14.5 % (20.5-51.1); MCHC 33.3 g/dL (33-37); MCV 87.1 FL (81-99); MONO# 0.94 X1000 (0.11-0.59); MONO% 11.2 % (1.7-9.3); MPV 9.2 FL (7.4-10.4); NEUT# 5.82 X1000 (1.4-6.5); NEUT% 69.4 % (42.2-75.2); PLT 461 X1000 (130-400); RBC 3.72 XMIL (4.2-5.4); RDW 14.3 % (11.5-14.5); WBC 8.39 X1000 (4.8-10.8)
[2019-11-16 07:16] LABS: CALCIUM 9.7 mg/dL (8.8-10.2); PHOSPHORUS 5.5 mg/dL (2.7-4.5); POTASSIUM 4.1 mmol/L (3.5-5.1)
[2019-11-16] MEDS: MUCOMYST 20% INH SCH (08:43)
[2019-11-16] MEDS: MUCINEX PO SCH ×2 (11:30→21:13)
[2019-11-16] MEDS: ZOSTRIX TOP SCH ×4 (11:31→21:13)
[2019-11-16] MEDS: MIRALAX PO SCH (11:31)
[2019-11-16] MEDS: TYLENOL PO PRN (11:40)
--- NOTE | 2019-11-16 13:43 | PROGRESS NOTE ---
DATE: 11/16/2019 Ms. Alford was awake. She says she feels better, little stronger, feels like she is able to ambulate a little better and she is hoping to go home tomorrow. Temperature 97.9 degrees, pulse 74, respirations 14, blood pressure 127/58. Pupils are equal and round. Lungs are clear in all lung muir. Cardiovascular: Regular rhythm, rate without murmur or S3. Abdomen: Soft. Skin: Warm and dry. Blood sugar 157, 108, 106, 171. ASSESSMENT AND PLAN: 1. Chronic bronchiectasis. 2. Severe chronic obstructive pulmonary disease. 3. History of lung cancer. 4. Acute renal failure with a continued improvement. Her creatinine is improving. 5. General weakness, deconditioning. Continue PT and occupational therapy. There is a chance she could go home tomorrow. Review of orders I do not see any change. LAB: Reviewed from today white count 8390, hematocrit is 32, platelet count is 461,000. Sodium is 137, potassium 4.1, chloride 99, BUN 63, creatinine is down to 3.0. cc: Feng Ramirez MD
[2019-11-16] MEDS: INCRUSE ELLIPTA INH SCH (15:00)
[2019-11-16] MEDS: PRAVACHOL PO SCH (21:13)
[2019-11-16] MEDS: ATIVAN PO PRN (21:13)
--- NOTE | 2019-11-17 01:18 | PULMONOLOGY PROGRESS NOTE ---
DATE: 11/16/2019 SUBJECTIVE: The patient is awake and alert. She reports she has gotten out of bed today, but her legs are weak. She denies significant cough or sputum production. OBJECTIVE: Vital Signs: The patient has been afebrile for the last 24 hours. Blood pressure 141/63, heart rate 82, respiratory rate 16, oxygen saturation 100% on room air. HEENT: Pupils are equal and reactive. Oropharynx appears clear. Neck: Supple. Chest: Reveals good air entry bilaterally with occasional rhonchi. Cardiac: S1-S2. Abdomen: Soft. Extremities: Without edema. LABORATORIES: Sodium 137, potassium 4.1, chloride 99, bicarbonate 22, BUN 63, creatinine 3.0. White blood count 8.39, hemoglobin 10.8, platelet count 461,000. IMPRESSION: An 83-year-old with: 1. Chronic bronchiectasis. 2. Severe chronic obstructive pulmonary disease. 3. Acute renal failure with continued improvement in BUN and creatinine. PLAN: 1. Continue bronchial hygiene. 2. Anticipate discharge to home, rehab or inpatient rehab soon. cc: Germán Mack MD
[2019-11-17] MEDS: HEPARIN SUBQ SCH ×2 (01:41→12:08)
[2019-11-17] MEDS: DUONEB (A & A) INH SCH ×3 (03:33→11:19)
[2019-11-17 07:12] LABS: BASO# 0.07 X1000 (0.0-0.2); EOS# 0.17 X1000 (0.0-0.7); EOS% 2.5 % (0.0-10.0); HEMATOCRIT 33.8 % (37.0-47.0); HEMOGLOBIN 11.5 g/dL (12.0-16.0); IMM GRAN# 0.06 X1000 (0.0-0.04); IMM GRAN% 0.9 % (0.0-0.5); LYMPH# 1.06 X1000 (1.2-3.4); LYMPH% 15.3 % (20.5-51.1); MCH 29.6 PG (27-31); MCV 87.1 FL (81-99); MONO# 0.77 X1000 (0.11-0.59); MONO% 11.1 % (1.7-9.3); MPV 9.1 FL (7.4-10.4); NEUT# 4.79 X1000 (1.4-6.5); NEUT% 69.2 % (42.2-75.2); PLT 491 X1000 (130-400); RBC 3.88 XMIL (4.2-5.4); WBC 6.92 X1000 (4.8-10.8)
[2019-11-17 07:52] LABS: ALBUMIN 3.4 g/dL (3.5-5.0); CREATININE 2.9 mg/dL (0.5-0.9); PHOSPHORUS 5.5 mg/dL (2.7-4.5); POTASSIUM 4.2 mmol/L (3.5-5.1)
[2019-11-17] MEDS: INCRUSE ELLIPTA INH SCH (07:55)
[2019-11-17] MEDS: MUCOMYST 20% INH SCH (07:55)
[2019-11-17 11:04] VITALS: BP 120/66
[2019-11-17] MEDS: MIRALAX PO SCH (12:07)
[2019-11-17] MEDS: MUCINEX PO SCH (12:08)
[2019-11-17] MEDS: TYLENOL PO PRN (12:08)
[2019-11-17] MEDS: ZOSTRIX TOP SCH (12:08)
--- NOTE | 2019-11-17 14:04 | DISCHARGE SUMMARY ---
ADMISSION DATE: 11/08/2019 DISCHARGE DATE: 11/17/2019 HISTORY: Ms. Alford was admitted on 11/08/2019 and discharged on 11/17/2019. She was followed by Dr. Shantel Joseph. She came in because she was unable to pee for a little over a day duration. An 83-year-old with history of COPD, bronchiectasis, abdominal aortic aneurysm, hypertension, hyperlipidemia, history of left upper lobe lung cancer status post lobectomy, and history of recurrent admissions for Pseudomonas pneumonia, who presented with difficulty urination for over 24 hours. Patient states that she had been unable to urinate despite adequate drinking and eating for the last 24 hours. Of note, she said she started a new antibiotic meropenem 2 days ago, which she was using for recurrent Pseudomonas pneumonia infection which she has been battling for about a year. She had 2 days of meropenem and subsequently she could not pee despite adequate oral intake. Denies any fever. Denied any nausea or vomiting, any diarrhea. On admission, it was noted her creatinine had bumped up, and she was admitted to the hospital. Initially, she did not want to come in but marked elevation of creatinine 2.5. PAST MEDICAL HISTORY: 1. Once again, COPD, bronchiectasis, abdominal aortic aneurysm, hypertension, hyperlipidemia, left upper lobe bronchus 2011, status post left upper lobectomy. She has documented IgA deficiency so admitted with acute kidney injury. 2. Recurrent Pseudomonas pneumonia, positive Pseudomonas sputum culture. 3. Hyponatremia secondary to volume depletion. 4. Chronic diagnosis of hypertension, hyperlipidemia, COPD, abdominal aortic aneurysm with repair, and IgA deficiency. Chest x-ray on admission on 11/06 much lower lung volumes appreciated. Knee x-ray, no acute injury. She had Nephrology consulted. Impression: Acute kidney injury, likely ischemic and tubular necrosis and so they did check for CK levels. She had a renal ultrasound. No acute process of the urinary tract. Splenomegaly appreciated. Repeat renal ultrasound on 11/09. Still no evidence of uropathy. Pulmonary was following her. 5. Chronic bronchiectasis, severe COPD, history of lung cancer, and protein calorie malnutrition. 6. Acute renal insufficiency. Renal function, creatinine seemed to improve slowly. Suspect she had ischemic acute tubular necrosis. Renal function continued to progress, and her breathing was improved. We did start her on physical therapy for general weakness and deconditioning. She wanted to go home, and so we got her ready to go home on 11/17/2019. DISCHARGE MEDICATIONS: She will take her home medicines. 1. She is on acetylcysteine 3 mL inhalation daily. 2. Astelin nasal spray. 3. Guaifenesin 600 mg b.i.d. 4. She takes lorazepam at home 0.25 to 0.5 every morning p.r.n. and then 0.5 to 1 mg at bedtime. 5. Mobic 15 mg a day which we will stop while renal function is improving. 6. Multivitamin. 7. Pravastatin 40 mg p.o. at bedtime. 8. Altace 2.5 mg a day. 9. Incruse Ellipta 1 puff inhalation daily. 10. I will make sure she has some MiraLAX 17 g daily if needed. 11. She will follow up with her primary care physician and with her ceramics technician who I believe is Dr. Mack. cc: Feng Ramirez MD
--- NOTE | 2019-11-17 15:07 | NEPHROLOGY PROGRESS NOTE ---
DATE: 11/17/2019 SUBJECTIVE: She is anticipating discharge today. She is going back home but she states someone is coming to live with her to help take care of her while she is convalescing. OBJECTIVE: Vital Signs: Blood pressure 120/66, heart rate 87, respirations 15, afebrile. General: No acute distress. Skin: Warm and dry. Neck: Neck veins are not distended. Heart: Regular. Lungs: Equal. No crackles. Abdomen: Soft, nontender. Bowel sounds present. Extremities: No edema, clubbing or cyanosis. IMPRESSION: Acute kidney injury. Nephrotoxic acute tubular necrosis. Creatinine 2.9 today. Slow improvement. Normal baseline kidney function. We will have her home health agency collect labs weekly for the next two weeks and then we will perform a tele visit. cc: Frank Arreola MD
== END 2019-11-17 14:40 | disposition home health service (06) | DRG 682 ==
LOC: ED 16:38 → 3N 11-08 00:53 → SUATTDRO 11-08 00:53
PROVIDERS: ATTEND Emergency Medicine